=== PATIENT | female | born 1965 | race Caucasian/White ===

== ENCOUNTER 2020-11-24 12:55 | Inpatient (IN) ==
[2020-11-24] MEDS ORDERED: IOPAMIDOL 100 ML BOTTLE IV ONE (12:56)
--- NOTE | 2020-11-24 15:33 | Emergency Department Note ---
Abdominal Pain HPI General Chief Complaint: Abdominal Pain Stated Complaint: RLQ pain, n/v Time Seen by Provider: 11/24/20 15:32 Source: patient Mode of arrival: ambulatory Limitations: no limitations History of Present Illness HPI Narrative: Narrative: 54 y/o female presents to the ED with abd pain since Sat afternoon (48 hours). Over the last 24 hours pain has migrated to RLQ. Sharp stabbing pain constant, increases with walking and with movement. No hx of same. + Nausea with vomiting x 3. Decreased oral intake last 2 days. Feels constipated. Last BM 3 days ago. Reports not passing gas. Related Data Home Medications Medication Instructions Recorded Confirmed thyroid (pork) 60 mg tablet 60 mg PO QDAY 08/27/19 11/25/20 C-testosterone 5mg/25ml #1 ea 09/24/19 11/25/20 estradiol 1 mg tablet 2 mg PO QDAY tab 09/24/19 11/25/20 phentermine 37.5 mg capsule 37.5 mg PO QDAY 09/24/19 11/25/20 progesterone micronized 200 mg 200 mg PO QDAY cap 09/24/19 11/25/20 capsule topiramate 25 mg tablet 25 mg PO QDAY 09/24/19 11/25/20 melatonin 10 mg capsule 20 mg PO HS cap 05/05/20 11/25/20 ergocalciferol (vitamin D2) See Rx Instructions .ROUTE .COMPLEX 11/25/20 11/25/20 Previous Rx's Medication Instructions Recorded omeprazole 40 mg capsule,delayed 40 mg PO QDAY 30 Days #30 cap 07/15/20 release valacyclovir 1 gram tablet 1,000 mg PO QDAY 90 Days #90 tab 09/05/20 Allergies Allergy/AdvReac Type Severity Reaction Status Date / Time peanut Allergy Severe Difficulty Verified 11/24/20 12:56 Breathing Penicillins Allergy Severe Rash Verified 11/24/20 12:56 Sulfa (Sulfonamide AdvReac Severe Migraine Verified 11/24/20 12:56 Antibiotics) Review of Systems ROS ROS Narrative: Narrative: Positive ROS for abd pain, nausea, vomiting and const ipation. Otherwise 10 systems reviewed and entirely negative. PFSH Narrative Patient History Narrative: Narrative: Medical/Surgical/Family History All Active Problems Volvulus of ascending colon (Acute) Complete obstruction of small intestine (Acute) Cecal bascule (Acute) Constipation (Chronic) Viral syndrome (Acute) Chest pain (Acute) Mouth dryness (Acute) Abdominal pain (Acute) Chest pain (Acute) Thrush (Acute) Metabolic acidosis (Acute) Dyspnea (Acute) Hiatal hernia (Chronic) Bronchiectasis (Chronic) Snoring (Acute) Genital herpes (Chronic) Allergic dermatitis (Chronic) Seborrheic keratosis (Chronic) Hemangioma (Chronic) Dermatofibroma (Chronic) Urge incontinence of urine (Chronic) Papilledema (Chronic) Pseudotumor cerebri (Chronic) GERD (gastroesophageal reflux disease) (Chronic) Depression with anxiety (Chronic) Vitamin D deficiency (Chronic) Endocrine disorder (Chronic) History of cholecystectomy (Chronic ~2000) History of hysterectomy (Chronic ~1991) History of (Chronic) PTSD (post-traumatic stress disorder) (Chronic) Hypothyroidism (Chronic) Hypersomnia (Chronic) Change in vision (Chronic) Loss of appetite (Chronic) Leg pain (Chronic) Back pain (Chronic) History of chronic bronchitis (Chronic) Fatigue (Chronic) Shortness of breath (Chronic) Medical History Abdominal pain Allergic dermatitis Back pain Bronchiectasis Change in vision Chest pain Constipation Depression with anxiety Dermatofibroma Dyspnea Endocrine disorder Fatigue Genital herpes GERD (gastroesophageal reflux disease) Hemangioma Hiatal hernia History of chronic bronchitis Hypersomnia Hypothyroidism Leg pain Loss of appetite Metabolic acidosis Mouth dryness Papilledema Pseudotumor cerebri PTSD (post-traumatic stress disorder) Seborrheic keratosis Shortness of breath Snoring Thrush Urge incontinence of urine Viral syndrome Vitamin D deficiency Surgical History History of 3 History of cholecystectomy (~2000) History of esophagogastroduodenoscopy (EGD) 09/05/17; 05/30/17 History of hysterectomy (~1991) Ovaries remain Family History Father , age 62 Obesity Cancer Mother Obesity Hypoglycemia Migraine headache Ovarian cancer Family/Other Lupus Crohn's disease Stroke Grandmother Pancreatic cancer Maternal Dementia Maternal Grandfather Dementia Maternal Sister Lupus half-sister Social History Smoking Status: Former smoker Alcohol Intake Frequency: holiday/special occasion only Substance Use: does not use Exam Narrative Narrative: Narrative: General Limitations: no limitations General appearance: Present alert; Absent in distress Head Head: Present atraumatic and normocephalic Eye Eye: Present normal appearance ENT ENT: Present normal exam, normal oropharynx and mucous membranes moist Neck Neck: Present normal inspection and full ROM Chest Chest: Present symmetric chest wall rise Respiratory Respiratory: Present normal lung sounds bilaterally; Absent respiratory distress and wheezes Cardiovascular Cardiovascular: Present regular rate, normal rhythm and normal heart sounds Adbominal Abdominal: Present soft, tenderness, guarding (RLQ) and normal bowel sounds Extremities Extremities: Present normal inspection and full ROM; Absent pedal edema Back Back: Absent tenderness Neurological Neurological: Present alert, oriented X3 and normal gait Psychiatric Psychiatric: Present normal affect Skin Skin: Present warm (WNL) and dry Course Vital Signs Vital signs: Vital Signs Pulse Rate 148 H 11/24/20 12:56 Respiratory Rate 20 11/24/20 12:56 Blood Pressure 113/84 11/24/20 12:56 Pulse Oximetry (%) 97 11/24/20 12:56 Temperature 36.7 C 11/25/20 08:00 Pulse Rate 59 L 11/25/20 08:00 Respiratory Rate 14 11/25/20 08:00 Blood Pressure 95/49 11/25/20 08:00 Pulse Oximetry (%) 100 11/25/20 08:00 MDM MDM Narrative Medical decision making narrative: Narrative: [address] findings with pt. NPO, will covid swab, IVF. Pain controlled. [address] Valente, surgeon, will see pt in ED. Lab Data Result diagrams: 11/25/20 05:47 11/25/20 05:46 Labs: Lab Results 11/24/20 11/24/20 11/24/20 Range/Units 15:29 15:29 15:29 WBC 14.3 H (4.5-11.0) K/mcL RBC 5.20 (3.59-5.38) M/mcL Hgb 16.3 H (11.2-15.7) g/dL Hct 48.2 H (34.1-44.9) % MCV 92.7 (80.0-100.0) fL MCH 31.3 (26.0-34.0) pg MCHC 33.8 (31.0-36.0) g/dL RDW 13.1 (11.5-14.5) % Plt Count 283 (140-440) K/mcL MPV 11.4 H (7.4-10.4) fL Neut % (Auto) 76.9 (38.0-78.0) % Lymph % (Auto) 16.0 (15.5-49.0) % [place] % (Auto) 6.9 (1.0-12.0) % Eos % (Auto) 0.1 (0.0-7.0) % Baso % (Auto) 0.1 (0.0-2.0) % Lymph # (Auto) 2.29 (1.50-4.80) K/mcL [place] # (Auto) 0.98 H (0.10-0.90) K/mcL Eos # (Auto) 0.01 (0.00-0.70) K/mcL Baso # (Auto) 0.02 (0.00-0.30) K/mcL Absolute Neutrophils 10.99 H (1.80-8.00) K/mcL Sodium 137 (133-145) mmol/L Potassium 3.2 L (3.3-5.1) mmol/L Chloride 98 (96-108) mmol/L Carbon Dioxide 26 (22-30) mmol/L Anion Gap 13.0 (8.0-16.0) BUN 9 (6-20) mg/dL Creatinine 0.9 (0.6-1.1) mg/dL GFR Calculation 73 Glucose 93 (70-105) mg/dL Calcium 9.6 (8.6-10.4) mg/dL Total Bilirubin 0.5 (0.1-1.0) mg/dL AST 19 (<32) U/L ALT 18 (<40) U/L Alkaline Phosphatase 52 (39-117) U/L Total Protein 7.6 (5.9-8.4) gm/dL Albumin 4.5 (3.2-5.2) gm/dL Globulin 3.1 (2.2-3.7) gm/dL Albumin/Globulin Ratio 1.5 (1.0-2.3) Lipase 26 (7-60) U/L ED POC Tests ED POC Tests: DELIO - SARS Antigen Negative Radiology Data Radiology results reviewed: Yes I reviewed the patient's radiology results. Radiology results narrative: INDICATION: RLQ pain, eval appy COMPARISON: None. TECHNIQUE: Axial images were obtained through the abdomen and pelvis. Sagittally and coronally reformatted images. 80 mL Isovue 370 injected intravenously. Oral contrast material was not administered FINDINGS: Lung bases:Negative. No pulmonary parenchymal nodule. No pleural fluid or pericardial fluid Liver:Negative. No focal intrahepatic mass. No focal abnormality. Liver contour is smooth. No evidence for cirrhosis Gallbladder, bilary:Previous cholecystectomy. There is mild intrahepatic bile duct dilatation. Common bile duct is dilated to approximately 9 mm. No detectable choledocholithiasis. Spleen:No splenomegaly. Normal enhancement of splenic and portal veins. Pancreas:No pancreatic mass. No peripancreatic abnormality Adrenal glands:Negative Kidneys, ureters, bladder:No solid renal mass. No hydronephrosis. No obstructing calculi. There is no hydroureter. No ureteral stone Bladder is collapsed. No bladder calculi Gastrointestinal:Cecum is distended and measures approximately 8 cm in cross-sectional diameter. The cecum extends across the midline to the left side of the pelvis. Appearance is consistent with cecal bascule. No cecal wall thickening. Ascending colon, transverse colon, descending colon are negative. Sigmoid colon contains fecal material and is negative. There is no diverticulitis. No detectable colonic mass. Small bowel is abnormal. There is diffuse small bowel dilatation. Jejunum and ileum measure approximately 2.5 cm in maximum cross-sectional diameter. Small bowel is fluid-filled. In the left upper quadrant there is collapsed small bowel and findings suggesting internal hernia and jejunal obstruction. This may be a left paraduodenal hernia. Ileum, however, is also dilated and this may be due to cecal bascule and relative obstruction at the ileocecal valve. Appendix: The appendix is nonvisualized Vascular:Negative abdominal aorta. Superior mesenteric artery and celiac trunk are normal. Normal opacification of the inferior mesenteric artery Lymphatic:No retroperitoneal or mesenteric adenopathy Mesentery, peritoneum: Small amount of free pelvic fluid. No intra-abdominal abscess. No pneumoperitoneum. Reproductive:History of previous hysterectomy. No adnexal mass Musculoskeletal:No lumbar compression fractures. Sacrum and pelvis are negative. No hip fracture. No abdominal wall or inguinal hernia IMPRESSION: 1. Distended fluid-filled cecum. Cecum extends across the midline into the left pelvis. 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 Dilated fluid-filled small bowel. This involves both ileum and jejunum 3. Apparent transition point in the left upper quadrant consistent with internal hernia and small bowel obstruction 4. Dilated fluid-filled jejunum may be due to cecal bascule 5. Small amount of free intraperitoneal fluid. There is no pneumoperitoneum. 6. Previous cholecystectomy. Mild intrahepatic bile duct dilatation. Common bile duct measures 9 mm. No detectable choledocholithiasis 7. Previous hysterectomy The exam was performed using radiation dose optimization techniques including, but not limited to, automated exposure control, adjustment of the mA and/or kV according to patient size and use of iterative reconstruction technique. Interpreted and Authenticated by: Irvin Schmidt 11/24/20 [id number] Iron Installer: Discharge Plan Patient/Caregiver Discharge Instructions Pt seen by [employer] HAND/PA only: Yes Clinical Impression: Complete obstruction of small intestine, Cecal bascule Patient Disposition: Xfer As Inpt ([facility]) Discharge Date/Time: 11/24/20 18:09
[2020-11-24] MEDS ORDERED: ONDANSETRON 4 MG/2 ML VIAL IV ONE (15:36)
[2020-11-24] MEDS ORDERED: morphine 4 MG/ML VIAL IV ONE (15:36)
[2020-11-24 16:01] LABS: Basophils # (Auto) 0.02 K/mcL (0.00-0.30); Basophils % (Auto) 0.1 % (0.0-2.0); Eosinophils # (Auto) 0.01 K/mcL (0.00-0.70); Eosinophils % (Auto) 0.1 % (0.0-7.0); Hematocrit 48.2 % (34.1-44.9); Hemoglobin 16.3 g/dL (11.2-15.7); Lymphocytes # (Auto) 2.29 K/mcL (1.50-4.80); Mean Cell Volume 92.7 fL (80.0-100.0); Mean Corpuscular HGB Conc 33.8 g/dL (31.0-36.0); Mean Platelet Volume 11.4 fL (7.4-10.4); Monocytes # (Auto) 0.98 K/mcL (0.10-0.90); Monocytes % (Auto) 6.9 % (1.0-12.0); Neutrophils % (Auto) 76.9 % (38.0-78.0); Platelet Count 283 K/mcL (140-440); Red Cell Distribution Width 13.1 % (11.5-14.5); WBC 14.3 K/mcL (4.5-11.0)
[2020-11-24 16:19] LABS: ALT/SGPT 18 U/L (<40); AST/SGOT 19 U/L (<32); Albumin 4.5 gm/dL (3.2-5.2); Albumin/Globulin Ratio 1.5 (1.0-2.3); Alkaline Phosphatase 52 U/L (39-117); Bilirubin,Total 0.5 mg/dL (0.1-1.0); Blood Urea Nitrogen 9 mg/dL (6-20); Calcium 9.6 mg/dL (8.6-10.4); Carbon Dioxide 26 mmol/L (22-30); Chloride 98 mmol/L (96-108); Globulin 3.1 gm/dL (2.2-3.7); Glomerular Filtration Rate 73; Glucose 93 mg/dL (70-105)
--- NOTE | 2020-11-24 16:24 | Cat Scan Report ---
INDICATION: RLQ pain, eval appy COMPARISON: None. TECHNIQUE: Axial images were obtained through the abdomen and pelvis. Sagittally and coronally reformatted images. 80 mL Isovue 370 injected intravenously. Oral contrast material was not administered FINDINGS: Lung bases:Negative. No pulmonary parenchymal nodule. No pleural fluid or pericardial fluid Liver:Negative. No focal intrahepatic mass. No focal abnormality. Liver contour is smooth. No evidence for cirrhosis Gallbladder, bilary:Previous cholecystectomy. There is mild intrahepatic bile duct dilatation. Common bile duct is dilated to approximately 9 mm. No detectable choledocholithiasis. Spleen:No splenomegaly. Normal enhancement of splenic and portal veins. Pancreas:No pancreatic mass. No peripancreatic abnormality Adrenal glands:Negative Kidneys, ureters, bladder:No solid renal mass. No hydronephrosis. No obstructing calculi. There is no hydroureter. No ureteral stone Bladder is collapsed. No bladder calculi Gastrointestinal:Cecum is distended and measures approximately 8 cm in cross-sectional diameter. The cecum extends across the midline to the left side of the pelvis. Appearance is consistent with cecal bascule. No cecal wall thickening. Ascending colon, transverse colon, descending colon are negative. Sigmoid colon contains fecal material and is negative. There is no diverticulitis. No detectable colonic mass. Small bowel is abnormal. There is diffuse small bowel dilatation. Jejunum and ileum measure approximately 2.5 cm in maximum cross-sectional diameter. Small bowel is fluid-filled. In the left upper quadrant there is collapsed small bowel and findings suggesting internal hernia and jejunal obstruction. This may be a left paraduodenal hernia. Ileum, however, is also dilated and this may be due to cecal bascule and relative obstruction at the ileocecal valve. Appendix: The appendix is nonvisualized Vascular:Negative abdominal aorta. Superior mesenteric artery and celiac trunk are normal. Normal opacification of the inferior mesenteric artery Lymphatic:No retroperitoneal or mesenteric adenopathy Mesentery, peritoneum: Small amount of free pelvic fluid. No intra-abdominal abscess. No pneumoperitoneum. Reproductive:History of previous hysterectomy. No adnexal mass Musculoskeletal:No lumbar compression fractures. Sacrum and pelvis are negative. No hip fracture. No abdominal wall or inguinal hernia IMPRESSION: 1. Distended fluid-filled cecum. Cecum extends across the midline into the left pelvis. 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 Dilated fluid-filled small bowel. This involves both ileum and jejunum 3. Apparent transition point in the left upper quadrant consistent with internal hernia and small bowel obstruction 4. Dilated fluid-filled jejunum may be due to cecal bascule 5. Small amount of free intraperitoneal fluid. There is no pneumoperitoneum. 6. Previous cholecystectomy. Mild intrahepatic bile duct dilatation. Common bile duct measures 9 mm. No detectable choledocholithiasis 7. Previous hysterectomy The exam was performed using radiation dose optimization techniques including, but not limited to, automated exposure control, adjustment of the mA and/or kV according to patient size and use of iterative reconstruction technique. Interpreted and Authenticated by: Irvin Schmidt 11/24/20
--- NOTE | 2020-11-24 17:13 | General Surg History&Physical ---
HPI History of Present Illness Patient information: Note initiated : 11/24/20 at 5:08 pm Service Date, if different from initiated Date: [] Patient: Kat Benson a 54 y/o F admitted on for RLQ pain, n/v. Chief Complaint: Abdominal pain, nausea and emesis History of present illness: Ms. Benson is a 54 year old F who started having crampy abdominal pain on Tuesday, the pain gradually increased over the last several days however she did not think it was significant until today when she woke up and started having nausea with copious amount of brown emesis. She denies any prior history of similar sort of pains. She does report that starting on Tuesday she had some abdominal distention up to what she describes 6 weeks . Past surgical history is significant for cholecystectomy, C- section x3 and hysterectomy without oophorectomy. She does report mild fever, no chills, no diarrhea or constipation. She has no sick contacts or travel outside [place]. Review of Systems Review of systems: All systems are reviewed, negative other than above PFSH PFSH All Active Problems Volvulus of ascending colon (Acute) Complete obstruction of small intestine (Acute) Cecal bascule (Acute) Constipation (Chronic) Viral syndrome (Acute) Chest pain (Acute) Mouth dryness (Acute) Abdominal pain (Acute) Chest pain (Acute) Thrush (Acute) Metabolic acidosis (Acute) Dyspnea (Acute) Hiatal hernia (Chronic) Bronchiectasis (Chronic) Snoring (Acute) Genital herpes (Chronic) Allergic dermatitis (Chronic) Seborrheic keratosis (Chronic) Hemangioma (Chronic) Dermatofibroma (Chronic) Urge incontinence of urine (Chronic) Papilledema (Chronic) Pseudotumor cerebri (Chronic) GERD (gastroesophageal reflux disease) (Chronic) Depression with anxiety (Chronic) Vitamin D deficiency (Chronic) Endocrine disorder (Chronic) History of cholecystectomy (Chronic ~2000) History of hysterectomy (Chronic ~1991) History of (Chronic) PTSD (post-traumatic stress disorder) (Chronic) Hypothyroidism (Chronic) Hypersomnia (Chronic) Change in vision (Chronic) Loss of appetite (Chronic) Leg pain (Chronic) Back pain (Chronic) History of chronic bronchitis (Chronic) Fatigue (Chronic) Shortness of breath (Chronic) Medical History Abdominal pain Allergic dermatitis Back pain Bronchiectasis Change in vision Chest pain Constipation Depression with anxiety Dermatofibroma Dyspnea Endocrine disorder Fatigue Genital herpes GERD (gastroesophageal reflux disease) Hemangioma Hiatal hernia History of chronic bronchitis Hypersomnia Hypothyroidism Leg pain Loss of appetite Metabolic acidosis Mouth dryness Papilledema Pseudotumor cerebri PTSD (post-traumatic stress disorder) Seborrheic keratosis Shortness of breath Snoring Thrush Urge incontinence of urine Viral syndrome Vitamin D deficiency Surgical History History of 3 History of cholecystectomy (~2000) History of esophagogastroduodenoscopy (EGD) 09/05/17; 05/30/17 History of hysterectomy (~1991) Ovaries remain Family History Father , age 62 Obesity Cancer Mother Obesity Hypoglycemia Migraine headache Ovarian cancer Family/Other Lupus Crohn's disease Stroke Grandmother Pancreatic cancer Maternal Dementia Maternal Grandfather Dementia Maternal Sister Lupus half-sister Social History marital status: occupational status: employed occupation: [id number] smoking status stop date: 02/28/94 alcohol intake frequency: holiday/special occasion only substance use type: does not use MEDS/ALLERGIES Home Medications and Allergies Home Medications Medication Instructions Recorded Confirmed Type prasterone (dhea) 50 mg capsule 50 mg PO QDAY 08/27/19 07/14/20 History thyroid (pork) 60 mg tablet 60 mg PO QDAY 08/27/19 07/14/20 History C-testosterone 5mg/25ml #1 ea 09/24/19 05/05/20 History estradiol 1 mg tablet 2 mg PO QDAY tab 09/24/19 07/14/20 History phentermine 37.5 mg capsule 37.5 mg PO QDAY 09/24/19 07/14/20 History progesterone micronized 200 mg 200 mg PO QDAY cap 09/24/19 07/14/20 History capsule topiramate 25 mg tablet 25 mg PO QDAY 09/24/19 07/14/20 History vitamin D #1 ea 09/24/19 05/05/20 History fluticasone propionate 220 1 puff INHALATION BID #12 g 11/13/20 05/17/21 Rx mcg/actuation HFA aerosol inhaler melatonin 10 mg capsule 20 mg PO HS cap 05/05/20 07/14/20 History spironolactone 25 100 ml PO DAILY 05/05/20 07/14/20 History albuterol sulfate 90 mcg/actuation 2 puff INHALATION Q6H PRN #8.5 g 05/15/20 07/14/20 Rx aerosol inhaler omeprazole 40 mg capsule,delayed 40 mg PO QDAY 30 Days #30 cap 07/15/20 Rx release valacyclovir 1 gram tablet 1,000 mg PO QDAY 90 Days #90 tab 09/05/20 Rx Allergies Allergy/AdvReac Type Severity Reaction Status Date / Time peanut Allergy Severe Difficulty Verified 11/24/20 12:56 Breathing Penicillins Allergy Severe Rash Verified 11/24/20 12:56 Sulfa (Sulfonamide AdvReac Severe Migraine Verified 11/24/20 12:56 Antibiotics) Physical Examination Vital Signs Vital signs: Pulse Resp BP Pulse Ox 83 20 123/73 97 11/24/20 15:45 11/24/20 12:56 11/24/20 15:45 11/24/20 15:45 General physical appearance General physical exam: well developed, well nourished and no distress Eyes Eye exam: PERRL and normal ocular movement ENT ENT exam: normal pinna, normal nares, normal mucosa, no hearing loss and no congestion Head Head exam IM: Present atraumatic and normocephalic Neck Neck exam: no masses, no bruits, trachea midline, no lymphadenopathy and no venous distension Cardiovascular Cardiovascular exam IM: Present normal rate and rhythm Respiratory Respiratory exam: normal expansion, normal respiratory effort, clear to percussion and clear to auscultation Abdomen Abdomen: Present soft, tender, bowel sounds, surgical scars and rebound; Absent guarding and rigid Hernia: Present none Genitourinary Genitourinary (Female): Present normal external genitalia Rectum Rectum: Present normal sphincter tone, no hemorrhoids, no tenderness, no masses and no bleeding Integumentary Integumentary: Present no rash, no growths and no abnormal pigmentation Neurologic Neurologic: Present normal coordination and normal sensation Musculoskeletal Musculoskeletal: Present normal gait and normal posture Psychiatric Psychiatric: Present oriented to time, oriented to person, oriented to place, speech is normal and memory intact Results Labs Result diagrams: 11/24/20 15:29 11/24/20 15:29 Labs: Abnormal lab results 11/24/20 11/24/20 Range/Units 15:29 15:29 WBC 14.3 H (4.5-11.0) K/mcL Hgb 16.3 H (11.2-15.7) g/dL Hct 48.2 H (34.1-44.9) % MPV 11.4 H (7.4-10.4) fL [place] # (Auto) 0.98 H (0.10-0.90) K/mcL Absolute Neutrophils 10.99 H (1.80-8.00) K/mcL Potassium 3.2 L (3.3-5.1) mmol/L Diabetes panel 11/24/20 Range/Units 15:29 Sodium 137 (133-145) mmol/L Potassium 3.2 L (3.3-5.1) mmol/L Chloride 98 (96-108) mmol/L Carbon Dioxide 26 (22-30) mmol/L BUN 9 (6-20) mg/dL Creatinine 0.9 (0.6-1.1) mg/dL Glucose 93 (70-105) mg/dL Calcium 9.6 (8.6-10.4) mg/dL AST 19 (<32) U/L ALT 18 (<40) U/L Alkaline Phosphatase 52 (39-117) U/L Total Protein 7.6 (5.9-8.4) gm/dL Albumin 4.5 (3.2-5.2) gm/dL Calcium panel 11/24/20 Range/Units 15:29 Calcium 9.6 (8.6-10.4) mg/dL Albumin 4.5 (3.2-5.2) gm/dL Pituitary panel 11/24/20 Range/Units 15:29 Sodium 137 (133-145) mmol/L Potassium 3.2 L (3.3-5.1) mmol/L Chloride 98 (96-108) mmol/L Carbon Dioxide 26 (22-30) mmol/L BUN 9 (6-20) mg/dL Creatinine 0.9 (0.6-1.1) mg/dL Glucose 93 (70-105) mg/dL Calcium 9.6 (8.6-10.4) mg/dL Adrenal panel 11/24/20 Range/Units 15:29 Sodium 137 (133-145) mmol/L Potassium 3.2 L (3.3-5.1) mmol/L Chloride 98 (96-108) mmol/L Carbon Dioxide 26 (22-30) mmol/L BUN 9 (6-20) mg/dL Creatinine 0.9 (0.6-1.1) mg/dL Glucose 93 (70-105) mg/dL Calcium 9.6 (8.6-10.4) mg/dL Total Bilirubin 0.5 (0.1-1.0) mg/dL AST 19 (<32) U/L ALT 18 (<40) U/L Alkaline Phosphatase 52 (39-117) U/L Total Protein 7.6 (5.9-8.4) gm/dL Albumin 4.5 (3.2-5.2) gm/dL All other labs normal. Imaging CT scan - abdomen: other (CT scan reviewed, independently interpreted by myself consistent with cecal volvulus) A/P Assessment and plan (1) Volvulus of ascending colon: Status: Acute Narrative A/P Narrative: This is a pleasant 54-year-old female which presents with signs a nd symptoms consistent with a cecal volvulus. Patient has abdominal distention, nausea and emesis. Risk, benefits, alternatives to treatment discussed with the patient at length. She verbalizes understanding and agrees with treatment. Plan: Emergent operative intervention, exploratory laparotomy, possible bowel resection. Admit to hospital for ongoing evaluation. Time Spent With Patient Time: Total time spent is greater than 50% in coordination of care (as documented) at patient's floor/unit and/or counseling patient:
[2020-11-24] MEDS: 0.9 % SODIUM CHLORIDE 1,000 ML IV SCH (17:16)
[2020-11-24] MEDS ORDERED: CLINDAMYCIN 600 MG in DEXTROSE 5% IN WATER 50 ML IV SCH (18:00)
[2020-11-24] MEDS ORDERED: PROPOFOL 200 MG/20 ML VIAL IV ONE (18:37)
[2020-11-24] MEDS ORDERED: LIDOCAINE HCL/PF 100 MG/5 ML SYRINGE IV ONE (18:37)
[2020-11-24] MEDS ORDERED: ONDANSETRON 4 MG/2 ML VIAL ONE (18:37)
[2020-11-24] MEDS ORDERED: KETAMINE 50 MG/ML Syringe (ANEST) IV ONE (18:37)
[2020-11-24] MEDS ORDERED: ROCURONIUM 10 MG/ML ML IV ONE (18:37)
[2020-11-24] MEDS ORDERED: DEXAMETHASONE 10 MG/ML VIAL ONE (18:37)
[2020-11-24] MEDS ORDERED: MAGNESIUM SULFATE 2 GM/50 ML BAG IV ONE (18:37)
[2020-11-24] MEDS ORDERED: SUCCINYLCHOLINE 20 MG/ML ML IV ONE (18:37)
[2020-11-24] MEDS ORDERED: SUGAMMADEX SODIUM 200 MG/2 ML VIAL IV ONE (18:37)
[2020-11-24] MEDS ORDERED: fentaNYL 100 MCG/2 ML VIAL IV ONE (18:37)
[2020-11-24] MEDS ORDERED: NALOXONE HCL 0.4 MG/ML VIAL IV PRN (19:02)
[2020-11-24] MEDS ORDERED: LACTATED RINGERS 250 ML IV PRN (19:02)
[2020-11-24] MEDS ORDERED: ACETAMINOPHEN 1,000 MG/100 ML BAG IV ONE ×2 (19:02→20:11)
[2020-11-24] MEDS ORDERED: ONDANSETRON 4 MG/2 ML VIAL IV PRN ×2 (19:02→19:38)
[2020-11-24] MEDS ORDERED: IPRATROPIUM/ALBUTEROL 3 ML AMPUL.NEB NEB PRN (19:02)
[2020-11-24] MEDS ORDERED: diphenhydrAMINE 50 MG/ML VIAL IV PRN (19:02)
[2020-11-24] MEDS ORDERED: PROMETHAZINE 25 MG/ML VIAL IV PRN (19:02)
[2020-11-24] MEDS ORDERED: LACTATED RINGERS 1,000 ML IV SCH (19:15)
--- NOTE | 2020-11-24 19:38 | Operative Note ---
Brief Operative Note Date of procedure: 11/24/20 Pre-op diagnosis: Cecal volvulus Post-op diagnosis: same Procedure: Exploratory laparotomy, right hemicolectomy Anesthesia: GETA Findings: Adhesive band causing a cecal volvulus Complications: none Surgeon: [place] Estimated blood loss (cc): 50 Specimens Removed/Pathology: other (Right hemicolectomy) Condition: stable Disposition: floor Operative Note Operative Note: After risk benefits and alternatives to the procedure were discussed with the patient at length she verbalized understanding and desire to continue with the surgery. Patient was taken main operating place upon the operative table. General anesthesia was induced over endotracheal tube. Patient's prepped and draped in the standard sterile surgical fashion. Surgical timeout was taken to verify patient and procedure being performed. Midline incision was made carried down through the skin and subtenons tissue. The abdominal cavity was entered under direct vision and incision was carried superiorly and inferiorly. Abdominal expiration was significant for a volvulized cecum this was reduced and expiration revealed and adhesive band in approximately the mid ascending colon causing partial cecal obstruction. This was removed and exploration showed a distended and stretched mesentery to the cecum secondary to the partial colonic obstruction from adhesive band. Due to the redundant cecum and the propensity for the cecum to volvulized decision was made to perform a right hemicolectomy. The ileum was transected approximately 10 cm proximal to the terminal ileum and the cecum was transected just distal to the adhesive band. The mesentery was taken down with a vessel sealing device and the specimen was passed off the field for surgical pathology. A [id number] functional end-to-end stapled anastomosis was performed in the standard fashion. The enterotomy was closed with a running 3-0 PDS suture. The staple line was oversewn with interrupted 3-0 Vicryl sutures and the mesentery was closed with 3-0 Vicryl sutures. The small bowel was then ran from the anastomosis back to the ligament of Treitz which showed distended small bowel but no other adhesive bands, no internal hernias, and no other pathology. The NG tube was verified to be in the stomach in good position. The bowel and anastomosis were returned to the abdominal cavity which was then copiously irrigated with 2 L of normal saline. The closing tray was then brought up and the abdominal cavity was once again inspected for hemostasis and no further pathology was identified. Midline fascial defect was reapproximated with a running oh location was then awakened from general anesthesia transported postanesthesia care unit awake alert in good condition.
[2020-11-24] MEDS: fentaNYL 100 MCG/2 ML VIAL IV PRN ×4 (19:52→20:01)
[2020-11-24] MEDS: MEPERIDINE 25 MG/ML VIAL IV PRN ×2 (19:57→20:04)
[2020-11-24] MEDS: morphine 2 MG/ML VIAL IV PRN ×2 (20:05→20:18)
[2020-11-24] MEDS ORDERED: KETOROLAC 30 MG/ML VIAL IV ONE (20:12)
[2020-11-24] MEDS ORDERED: KETOROLAC 30 MG/ML VIAL ONE (20:23)
[2020-11-24] MEDS ORDERED: HYDROmorphone 0.5 MG/0.5 ML SYRINGE IV PRN (20:25)
[2020-11-24] MEDS: HYDROmorphone 0.5 MG/0.5 ML SYRINGE IV PRN ×2 (20:29→22:40)
[2020-11-24] MEDS ORDERED: HYDROmorphone 0.5 MG/0.5 ML SYRINGE ONE ×2 (20:31→20:48)
[2020-11-24] MEDS: LACTATED RINGERS 1,000 ML IV SCH (22:30)
[2020-11-25] MEDS: KETOROLAC 30 MG/ML VIAL IV SCH ×4 (01:19→23:24)
[2020-11-25] MEDS: HYDROmorphone 0.5 MG/0.5 ML SYRINGE IV PRN ×7 (02:52→23:25)
[2020-11-25] MEDS: 0.9 % SODIUM CHLORIDE 1,000 ML IV SCH ×2 (05:09→06:51)
[2020-11-25] MEDS: LACTATED RINGERS 1,000 ML IV SCH ×2 (05:10→05:54)
[2020-11-25 08:00] LABS: Basophils # (Auto) 0.02 K/mcL (0.00-0.30); Basophils % (Auto) 0.1 % (0.0-2.0); Eosinophils # (Auto) 0 K/mcL (0.00-0.70); Eosinophils % (Auto) 0 % (0.0-7.0); Hematocrit 40.6 % (34.1-44.9); Lymphocytes % (Auto) 7.1 % (15.5-49.0); Mean Cell Volume 96.4 fL (80.0-100.0); Mean Platelet Volume 11.3 fL (7.4-10.4); Monocytes # (Auto) 0.83 K/mcL (0.10-0.90); Monocytes % (Auto) 5.9 % (1.0-12.0); Neutrophils % (Auto) 86.9 % (38.0-78.0); Platelet Count 203 K/mcL (140-440); RBC 4.21 M/mcL (3.59-5.38); Red Cell Distribution Width 13.1 % (11.5-14.5); WBC 14.2 K/mcL (4.5-11.0)
[2020-11-25 08:46] LABS: Blood Urea Nitrogen 10 mg/dL (6-20); Calcium 8.1 mg/dL (8.6-10.4); Carbon Dioxide 25 mmol/L (22-30); Chloride 105 mmol/L (96-108); Glomerular Filtration Rate 73; Glucose 113 mg/dL (70-105)
[2020-11-25] MEDS: DEXTROSE 5%-1/2NS W/20MEQ KCL 1,000 ML IV SCH ×3 (10:20→18:32)
--- NOTE | 2020-11-25 11:53 | General Surgery Progress Note ---
SUBJECTIVE Subjective Patient information: Note initiated : 11/25/20 at 11:51 am Service Date, if different from initiated Date: [] Patient: Kat Benson 54 y/o F admitted on 11/24/20 for RLQ pain, n/v. Chief Complaint: [] Interval history: Postop day #1 status post exploratory laparotomy, right hemicolectomy for cecal volvulus. Patient feels better this morning, she has not ambulated yet although her crampy abdominal pain is much improved. She has no further nausea or emesis. Constitutional Vitals: Vital Signs Temp Pulse Resp BP Pulse Ox 98.0 F 59 L 14 95/49 100 11/25/20 08:00 11/25/20 08:00 11/25/20 08:00 11/25/20 08:00 11/25/20 08:00 Period Temp Pulse Resp BP Sys/Alvarez Pulse Ox Last 24 Hr 97.6 F-98.3 F 59-148 12-20 87-144/49-103 83-100 Intake and Output 11/24/20 11/25/20 11/25/20 21:59 05:59 13:59 Intake Total 739 925 0 Output Total 150 550 Balance 589 375 0 Weight 139 lb Intake & Output: Intake & Output 11/24/20 11/25/20 11/25/20 21:59 05:59 13:59 Intake Total 739 925 0 Output Total 150 550 Balance 589 375 0 Weight 139 lb Intake: IV 739 925 Sodium Chloride 0.9% 1,000 ml @ 585 150 mls/hr IV .[id number] [facility] Rx#: [id number] Cleocin 600 mg In Dextrose 5% 54 in Water 50 ml @ 100 mls/hr IV PREOP [facility] Rx#:[id number] Lactated Ringers 1,000 ml @ 125 925 mls/hr IV .Q8H [facility] Rx#: [id number] Oral 0 Tube Feeding 0 0 Output: Gastric Drainage 100 NG/OG 100 Urine Catheter Amount 150 450 Other: Urine Appearance Clear Clear Clear Uretheral (Mandujano) Clear Urine Color Dark Yellow Dark Yellow Straw Uretheral (Mandujano) Dark Yellow General appearance: cooperative and no acute distress Head Additional comments: NG tube in place GI/Abdominal GI/Abdominal exam: Present soft and tenderness; Absent distended and rebound Additional comments: Dressing intact A/P Narrative A/P Narrative: Postop day #1 status post exploratory laparotomy right hemicolectomy. Patient is doing as expected. Plan: DC Mandujano. Patient needs to ambulate minimal 3 times a day, should have started last night. We will give ice chips, await return of bowel function before removing NG tube. Time Spent With Patient Time: Total time spent is greater than 50% in coordination of care (as documented) at patient's floor/unit and/or counseling patient:
--- NOTE | 2020-11-25 12:53 | EKG ---
[facility] Test Date: 2020-11-24 Pat Name: Kat Benson Department: ED Room: Gender: Female [employer]: : 1965 Requested By: Cullen Gary Order Number: [id number] Reading MD: Suman Alexander Measurements Intervals [place] Rate: 97 P: 82 TN: 148 QRS: 35 QRSD: 64 T: 76 QT: 340 QTc: 432 Interpretive Statements SINUS RHYTHM RIGHT ATRIAL ABNORMALITY Electronically Signed On 11-25-2020 12:52:59 PDT by Suman Alexander /store/M0/[id number]
[2020-11-25] MEDS ORDERED: BENZOCAINE 1 SPRAY BOTTLE TOPICAL ONE (20:28)
[2020-11-26] MEDS: HYDROmorphone 0.5 MG/0.5 ML SYRINGE IV PRN ×8 (01:42→22:36)
[2020-11-26] MEDS: DEXTROSE 5%-1/2NS W/20MEQ KCL 1,000 ML IV SCH ×3 (01:47→18:34)
[2020-11-26] MEDS: KETOROLAC 30 MG/ML VIAL IV SCH ×3 (06:48→18:34)
[2020-11-26 07:42] LABS: Blood Urea Nitrogen 9 mg/dL (6-20); Calcium 7.9 mg/dL (8.6-10.4); Carbon Dioxide 25 mmol/L (22-30); Chloride 108 mmol/L (96-108); Glomerular Filtration Rate 98; Glucose 101 mg/dL (70-105)
[2020-11-26 08:07] LABS: Basophils # (Auto) 0.02 K/mcL (0.00-0.30); Basophils % (Auto) 0.2 % (0.0-2.0); Eosinophils # (Auto) 0.08 K/mcL (0.00-0.70); Eosinophils % (Auto) 0.7 % (0.0-7.0); Hematocrit 34.6 % (34.1-44.9); Hemoglobin 11.6 g/dL (11.2-15.7); Lymphocytes # (Auto) 1.62 K/mcL (1.50-4.80); Lymphocytes % (Auto) 14.8 % (15.5-49.0); Mean Cell Volume 96.6 fL (80.0-100.0); Mean Corpuscular HGB Conc 33.5 g/dL (31.0-36.0); Mean Platelet Volume 11.3 fL (7.4-10.4); Monocytes # (Auto) 0.68 K/mcL (0.10-0.90); Monocytes % (Auto) 6.2 % (1.0-12.0); Neutrophils % (Auto) 78.1 % (38.0-78.0); Platelet Count 150 K/mcL (140-440); RBC 3.58 M/mcL (3.59-5.38); Red Cell Distribution Width 13.2 % (11.5-14.5); WBC 10.9 K/mcL (4.5-11.0)
[2020-11-27] MEDS: HYDROmorphone 0.5 MG/0.5 ML SYRINGE IV PRN ×7 (00:50→20:53)
[2020-11-27] MEDS: DEXTROSE 5%-1/2NS W/20MEQ KCL 1,000 ML IV SCH ×2 (02:15→10:01)
--- NOTE | 2020-11-27 12:01 | General Surgery Progress Note ---
SUBJECTIVE Subjective Patient information: Note initiated : 11/27/20 at 11:59 am Service Date, if different from initiated Date: [] Patient: Kat Benson 54 y/o F admitted on 11/24/20 for RLQ pain, n/v. Chief Complaint: [] Interval history: Postop day #2 status post closure laparotomy, right hemicolectomy for cecal volvulus. Patient feels well today, is passing a little bit of flatus, no nausea or vomiting fevers or chills. Constitutional Vitals: Vital Signs Temp Pulse Resp BP Pulse Ox 96.5 F L 89 14 99/57 97 11/27/20 08:00 11/27/20 08:00 11/27/20 02:35 11/27/20 08:00 11/27/20 08:00 Period Temp Pulse Resp BP Sys/Alvarez Pulse Ox Last 24 Hr 96.5 F-100.1 F 79-96 14-20 88-99/47-59 95-100 Intake and Output 11/26/20 11/27/20 11/27/20 21:59 05:59 13:59 Intake Total 1600 1360 971 Output Total 1075 1600 Balance 525 -240 971 Weight 139 lb Intake & Output: Intake & Output 11/26/20 11/27/20 11/27/20 21:59 05:59 13:59 Intake Total 1600 1360 971 Output Total 1075 1600 Balance 525 -240 971 Weight 139 lb Intake: IV 1000 960 971 Dextrose 5%-1/2Ns W/20Meq KCl 1 1000 960 971 ,000 ml @ 125 mls/hr IV .Q8H [facility] Rx#:[id number] Oral 600 400 Output: Void Amount 1075 1600 Other: Meal Dinner Percent of Meal Consumed 75% Feeding Ability Independent Urine Appearance Clear Clear Urine Color Bright Yellow Straw # Voids 1 General appearance: cooperative and no acute distress GI/Abdominal GI/Abdominal exam: Present soft and tenderness (Appropriate tender to palpation throughout, incision is clean dry and intact); Absent distended A/P Narrative A/P Narrative: Progressing as expected, tolerating clear liquid diet. Plan: Continue on clear liquid diet until return of bowel function. Start oral pain medication, continue to ambulate. Decrease IV fluid to 75 cc an hour. Time Spent With Patient Time: Total time spent is greater than 50% in coordination of care (as documented) at patient's floor/unit and/or counseling patient:
[2020-11-27] MEDS: oxyCODONE HCL 5 MG TABLET PO PRN ×2 (12:49→17:17)
--- NOTE | 2020-11-27 13:05 | Surgical Pathology Report ---
Histology Microscopic Diagnosis Specimen A- COLON, APPENDIX AND TERMINAL ILEUM, RIGHT HEMICOLECTOMY: --- COLON: FOCUS OF SEROSAL FIBROSIS AND VASCULAR CONGESTION, COMPATIBLE WITH CLINICAL HISTORY OF VOLVULUS. -- MELANOSIS COLI. --- TERMINAL ILEUM: NO DIAGNOSTIC ALTERATIONS. --- APPENDIX: NO DIAGNOSTIC ALTERATIONS. --- FIVE BENIGN LYMPH NODES. --- SURGICAL MARGINS VIABLE. --- NO DYSPLASIA OR MALIGNANCY IDENTIFIED. (RLF) Clinical History Right lower quadrant pain; nausea/vomiting. Procedural Impression Volvulus of ascending colon. Gross Description Received in formalin labeled cecum and appendix, is a portion of bowel with both margins stapled. The portion of cecum is 14.3 cm in length by 5.2 cm in diameter. The serosa is gardner-galvan. The wall is up to 0.2 cm thick. The mucosa is galvan and plicated with broadened folds. The appendix is present and measures 5 cm in length by 0.6 cm in diameter. The serosal surface of the appendix is gardner galvan with a 0.2 cm slightly raised possible nodule approximately 1.3 cm from the margin. There is a brown fecalith present. The portion of terminal ileum is 5 cm in length by 2.6 cm in diameter with galvan-rodriguez serosa, 0.2 cm thick wall and broadened plicated folds. The margin of the terminal ileum is inked black. There are six candidate lymph nodes identified from 0.3 to 1.5 cm. [employer] sections submitted: A1 - margins; A2 - random sections of cecum; A3 - ileocecal valve; A4 - terminal ileum; A5 - appendix; A6 - candidate lymph nodes. (SCB:sln) Electronically Signed Candice Stanton MD, FCAP Electronically Signed 11/27/2020 13:03
[2020-11-27] MEDS: DEXTROSE 5%-1/2NS 1,000 ML IV SCH ×2 (14:23→21:02)
[2020-11-27] MEDS: ACETAMINOPHEN 325 MG TABLET PO PRN ×2 (15:45→21:44)
[2020-11-27] MEDS: IBUPROFEN 600 MG TABLET PO PRN ×2 (15:46→21:43)
[2020-11-28] MEDS: oxyCODONE HCL 5 MG TABLET PO PRN ×5 (00:15→21:05)
[2020-11-28] MEDS: IBUPROFEN 600 MG TABLET PO PRN ×3 (06:33→22:55)
[2020-11-28] MEDS: ACETAMINOPHEN 325 MG TABLET PO PRN ×3 (06:33→22:54)
[2020-11-28 07:11] LABS: Basophils # (Auto) 0.02 K/mcL (0.00-0.30); Basophils % (Auto) 0.3 % (0.0-2.0); Eosinophils % (Auto) 4.6 % (0.0-7.0); Hematocrit 35.8 % (34.1-44.9); Hemoglobin 11.2 g/dL (11.2-15.7); Lymphocytes % (Auto) 18.6 % (15.5-49.0); Mean Cell Volume 99.4 fL (80.0-100.0); Mean Corpuscular HGB Conc 31.3 g/dL (31.0-36.0); Mean Platelet Volume 10.9 fL (7.4-10.4); Monocytes # (Auto) 0.63 K/mcL (0.10-0.90); Monocytes % (Auto) 9.8 % (1.0-12.0); Neutrophils % (Auto) 66.7 % (38.0-78.0); Platelet Count 186 K/mcL (140-440); Red Cell Distribution Width 12.7 % (11.5-14.5); WBC 6.5 K/mcL (4.5-11.0)
[2020-11-28 07:35] LABS: Blood Urea Nitrogen 4 mg/dL (6-20); Calcium 8.7 mg/dL (8.6-10.4); Carbon Dioxide 26 mmol/L (22-30); Chloride 106 mmol/L (96-108); Glomerular Filtration Rate 103; Glucose 84 mg/dL (70-105)
[2020-11-28] MEDS: HYDROmorphone 0.5 MG/0.5 ML SYRINGE IV PRN ×3 (07:44→23:03)
--- NOTE | 2020-11-28 08:04 | General Surgery Progress Note ---
SUBJECTIVE Subjective Patient information: Note initiated : 11/28/20 at 8:02 am Service Date, if different from initiated Date: [] Patient: Kat Benson 54 y/o F admitted on 11/24/20 for RLQ pain, n/v. Chief Complaint: [] Interval history: Patient continues to do well, had 2 large episodes of flatus overnight, her abdomen feels less distended and she is having less pain on oral pain medication. Patient is ambulatory, she has no fevers or chills, no nausea or vomiting. Constitutional Vitals: Vital Signs Temp Pulse Resp BP Pulse Ox 97.7 F 80 16 104/58 98 11/28/20 07:49 11/27/20 16:00 11/28/20 07:49 11/28/20 07:49 11/28/20 07:49 Period Temp Pulse Resp BP Sys/Alvarez Pulse Ox Last 24 Hr 97.5 F-98.3 F 80-84 16-16 97-108/51-60 97-98 Intake and Output 11/27/20 11/28/20 11/28/20 21:59 05:59 13:59 Intake Total 1800 250 Output Total 3815 400 Balance -2014 Weight 129 lb 8 oz Intake & Output: Intake & Output 11/27/20 11/28/20 11/28/20 21:59 05:59 13:59 Intake Total 1800 250 Output Total 3815 400 Balance -2014150 Weight 129 lb 8 oz Intake: IV 1000 Dextrose 5%-1/2Ns W/20Meq KCl 1 1000 ,000 ml @ 125 mls/hr IV .Q8H [facility] Rx#:[id number] Oral 400 250 GI Tube Flush 400 Output: Void Amount 3815 400 Other: Urine Appearance Clear Urine Color Bright Yellow General appearance: cooperative and no acute distress GI/Abdominal GI/Abdominal exam: Present soft and tenderness (Mild tender to palpation); Absent distended Additional comments: Midline incision is clean dry and intact A/P Narrative A/P Narrative: Postop right hemicolectomy for cecal volvulus. Patient is progressing as expected, has signs of return of bowel movement. Plan: Continue with ambulation awaiting full return of bowel function. I will advance her diet to regular today. Time Spent With Patient Time: Total time spent is greater than 50% in coordination of care (as documented) at patient's floor/unit and/or counseling patient:
[2020-11-28] MEDS: DEXTROSE 5%-1/2NS 1,000 ML IV SCH ×3 (10:41→22:44)
[2020-11-29] MEDS: oxyCODONE HCL 5 MG TABLET PO PRN ×3 (07:49→18:58)
[2020-11-29] MEDS: IBUPROFEN 600 MG TABLET PO PRN ×3 (07:58→23:01)
[2020-11-29] MEDS: ACETAMINOPHEN 325 MG TABLET PO PRN ×3 (07:58→22:59)
[2020-11-29] MEDS: DEXTROSE 5%-1/2NS 1,000 ML IV SCH ×2 (07:58→14:25)
--- NOTE | 2020-11-29 09:18 | General Surgery Progress Note ---
SUBJECTIVE Subjective Patient information: Note initiated : 11/29/20 at 9:16 am Service Date, if different from initiated Date: [] Patient: Kat Benson 54 y/o F admitted on 11/24/20 for RLQ pain, n/v. Chief Complaint: [] Interval history: Patient with complaint of point tenderness just superior to midline incision, also with occasional sharp stabbing right lower quadrant abdominal pain. Otherwise she feels good, she is tolerating a regular diet, she is passing flatus, she is ambulatory she has no fevers or chills nausea or vomiting. Constitutional Vitals: Vital Signs Temp Pulse Resp BP Pulse Ox 97.9 F 60 16 97/57 98 11/29/20 06:52 11/29/20 06:52 11/29/20 06:52 11/29/20 06:52 11/29/20 06:52 Period Temp Pulse Resp BP Sys/Alvarez Pulse Ox Last 24 Hr 97.4 F-98.3 F 60-69 16-18 92-125/46-75 98-100 Intake and Output 11/28/20 11/29/20 11/29/20 21:59 05:59 13:59 Intake Total 2100 1202 Output Total 2250 1000 Balance -150 202 Weight 131 lb 8 oz Intake & Output: Intake & Output 11/28/20 11/29/20 11/29/20 21:59 05:59 13:59 Intake Total 2100 1202 Output Total 2250 1000 Balance -150 202 Weight 131 lb 8 oz Intake: IV 902 Dextrose 5%-1/2Ns IV Solution 1 902 ,000 ml @ 75 mls/hr IV .[id number] [facility] Rx#:[id number] Oral 2100 300 Output: Void Amount 2250 1000 Other: Meal Lunch Percent of Meal Consumed 50% Urine Appearance Clear Clear Urine Color Bright Yellow Bright Yellow Urine Odor Normal Normal General appearance: cooperative and no acute distress GI/Abdominal GI/Abdominal exam: Present soft; Absent distended and tenderness Additional comments: Midline incision is clean dry and intact, cedrick intact. Point tenderness with a small amount of swelling just superior to the midline incision, most likely seroma A/P Narrative A/P Narrative: Patient is doing as good other than point tenderness and swelling just superior. Plan: CT scan abdomen pelvis, further plan based on CT findings. Time Spent With Patient Time: Total time spent is greater than 50% in coordination of care (as documented) at patient's floor/unit and/or counseling patient:
[2020-11-29] MEDS: HYDROmorphone 0.5 MG/0.5 ML SYRINGE IV PRN (11:14)
[2020-11-29] MEDS ORDERED: IOPAMIDOL 100 ML BOTTLE IV ONE (11:41)
--- NOTE | 2020-11-29 11:57 | Cat Scan Report ---
INDICATION: Abdominal swelling status post right hemicolectomy COMPARISON: Preoperative CT scan dated 11/24/2020 TECHNIQUE: Axial images were obtained through the abdomen and pelvis. Sagittally and coronally reformatted images. 80 mL Isovue 370 injected intravenously. Water soluble contrast material was given FINDINGS: Lung bases:Negative. No pulmonary parenchymal nodule. No pleural fluid or pericardial fluid Liver:Negative. No focal intrahepatic mass. No focal abnormality. Liver contour is smooth. No evidence for cirrhosis Gallbladder, bilary:Previous cholecystectomy. Mild intra and extrahepatic bile duct dilatation is stable. Common bile duct measures 8 mm in cross-sectional diameter. No detectable choledocholithiasis Spleen:No splenomegaly. Normal enhancement of splenic and portal veins. Pancreas:No pancreatic mass. No peripancreatic abnormality Adrenal glands:Negative Kidneys, ureters, bladder:No solid renal mass. No hydronephrosis. No obstructing calculi. There is no hydroureter. No ureteral stone No bladder calculi or detectable mass Gastrointestinal:Status post partial colectomy with resection of the cecum and probably a portion of the ascending colon. There is an enterocolonic anastomosis in the right side of the abdomen. Ascending colon is fluid-filled and mildly distended. There is fecal material within the transverse colon, descending colon, sigmoid colon. Small bowel is mildly prominent. Maximum cross-sectional diameter measures 2.0 cm. No evidence for high-grade obstruction. Contrast material in the distal ileum. No definite contrast material within the colon. Appendix: The appendix is removed Vascular:Negative abdominal aorta. Superior mesenteric artery and celiac trunk are normal. Normal opacification of the inferior mesenteric artery Lymphatic:No retroperitoneal or mesenteric adenopathy Mesentery, peritoneum: There is postoperative pneumoperitoneum. There is no intra-abdominal abscess. No intra-abdominal hematoma There is only minimal free fluid Reproductive:Patient has undergone previous hysterectomy. There is no adnexal mass Musculoskeletal:No lumbar compression fractures. Sacrum and pelvis are negative. No hip fracture. No abdominal wall or inguinal hernia. There are skin cedrick and a ventral midline incision. There is no subcutaneous abscess or significant seroma IMPRESSION: 1. Status post partial colectomy. Enterocolonic anastomosis as above 2. No high-grade mechanical small bowel obstruction. Small bowel is mildly prominent. Oral contrast material passes to the distal ileum 3. Postoperative pneumoperitoneum. No intraabdominal abscess or hematoma The exam was performed using radiation dose optimization techniques including, but not limited to, automated exposure control, adjustment of the mA and/or kV according to patient size and use of iterative reconstruction technique. Interpreted and Authenticated by: Irvin Schmidt 11/29/20
[2020-11-29] MEDS: 0.9 % SODIUM CHLORIDE 10 ML SYRINGE IV SCH ×2 (19:11→23:04)
[2020-11-30] MEDS: oxyCODONE HCL 5 MG TABLET PO PRN (01:45)
[2020-11-30] MEDS: DEXTROSE 5%-1/2NS 1,000 ML IV SCH (06:20)
[2020-11-30] MEDS: 0.9 % SODIUM CHLORIDE 10 ML SYRINGE IV SCH (06:58)
--- NOTE | 2020-11-30 09:47 | General Surgery Progress Note ---
SUBJECTIVE Subjective Patient information: Note initiated : 11/30/20 at 9:46 am Service Date, if different from initiated Date: [] Patient: Kat Benson 54 y/o F admitted on 11/24/20 for RLQ pain, n/v. Chief Complaint: [] Interval history: Patient is doing very well, tolerating regular diet, pain controlled and has had return of bowel function. Constitutional Vitals: Vital Signs Temp Pulse Resp BP Pulse Ox 98.3 F 71 14 101/59 97 11/30/20 07:19 11/30/20 07:19 11/30/20 07:19 11/30/20 07:19 11/30/20 07:19 Period Temp Pulse Resp BP Sys/Alvraez Pulse Ox Last 24 Hr 97.3 F-100.0 F 63-71 14-18 85-115/55-62 97-98 Intake and Output 11/29/20 11/30/20 11/30/20 21:59 05:59 13:59 Intake Total 680 240 600 Output Total 1500 1000 700 Balance -820 -760 -100 Intake & Output: Intake & Output 11/29/20 11/30/20 11/30/20 21:59 05:59 13:59 Intake Total 680 240 600 Output Total 1500 1000 700 Balance -820 -760 -100 Intake: IV 320 0 Dextrose 5%-1/2Ns IV Solution 1 320 0 ,000 ml @ 75 mls/hr IV .[id number] [facility] Rx#:[id number] Oral 360 240 600 Output: Void Amount 1050 1000 700 Urine/Stool Mix 450 Other: Meal Dinner Percent of Meal Consumed 50% Feeding Ability Independent Urine Appearance Clear Clear Clear Urine Color Bright Yellow Bright Yellow Bright Yellow Urine Odor Normal Normal Stool Size Smear Moderate Stool Color Brown Brown Stool Consistency Loose # Bowel Movements 1 General appearance: cooperative and no acute distress GI/Abdominal GI/Abdominal exam: Present soft; Absent distended and tenderness Additional comments: Incision is clean dry and intact A/P Narrative A/P Narrative: Postop right hemicolectomy. Tolerating regular diet, pain controlled and is ambulatory and has returned about. DC home, follow-up with me this week for staple removal. Time Spent With Patient Time: Total time spent is greater than 50% in coordination of care (as documented) at patient's floor/unit and/or counseling patient:
--- NOTE | 2020-12-12 10:50 | Discharge Summary ---
Discharge Provider Provider Patient information: Note initiated : 12/12/20 at 10:49 am Service Date, if different from initiated Date: [11/30/2020] Patient: Kat Benson 55 y/o F admitted on 11/24/20 for RLQ pain, n/v. Chief Complaint: Cecal volvulus Date of admission: 11/24/20 21:05 Discharge date: 11/30/20 Primary care physician: Maynor Hamm MD Consults: 11/24/20 Consult to Physician [CONS] Stat Comment: Consulting Provider: West Valente Reason For Exam: Physician to Consult COURSE Hospital Course Hospital course: Patient admitted for a cecal volvulus, patient was immediately taken to the operating room for exploratory laparotomy and right hemicolectomy. Postop patient progressed without difficulty and was tolerating regular diet, pain was controlled and was ambulatory on the day of discharge. Discharge diagnosis: Cecal volvulus, status post right hemicolectomy. Time Spent with Patient Time attestation: Total time spent providing and/or coordinating discharge services: Physical Examination Vital Signs Vital signs: Temp Pulse Resp BP Pulse Ox 98.3 F 71 14 101/59 97 11/30/20 10:30 11/30/20 10:30 11/30/20 10:30 11/30/20 07:19 11/30/20 10:30 Discharge Plan Patient/Caregiver Discharge Instructions Activity: increase activity as tolerated Diet: Regular Diet Instructions: Acetaminophen (By mouth), Ibuprofen (By mouth), Oxycodone, Slow Release (By mouth), Bowel Obstruction (DC), Exploratory Laparotomy (DC) Activity Restrictions/Additional Instructions: May resume home diet as tolerated. May resume medications as directed. May shower as tolerated. Activity as tolerated. Follow-up with Dr. Valente this week for staple removal. Take all medication as directed. Your prescription is with your discharge paperwork. Some medications were electronically transmitted to [facility] pharmacy. 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 Pain medication can cause constipation; take an over the counter stool softener and/or laxative while on pain medication. Return to ER for fever, chills, uncontrolled pain, inability to urinate or have a bowel movement, nausea and/or vomiting, swelling, redness, signs of infection, shortness of breath, chest pain, return of symptoms, or other acute symptom. This discharge packet is provided to you to help keep you informed about your care. We want to ensure you get everything you need when you go home. You will also be receiving a call from us in a few days to follow up with you and see how you are doing since your discharge. This gives us a chance to listen to any concerns you maybe experiencing since you were discharged or any additional needs you may have, as well as providing us feedback on your care experience. We strive to always provide excellent care and thank you for your feedback and for choosing [facility]. Prescriptions: New ibuprofen 800 mg tablet 800 mg PO TID PRN (Reason: pain) Qty: 60 RF: 0 acetaminophen [Tylenol 8 Hour] 650 mg tablet extended release 650 mg PO Q8H PRN (Reason: pain) Qty: 60 RF: 0 oxycodone 5 mg tablet 5 mg PO Q6H PRN (Reason: pain) Qty: 5 RF: 0 Continued omeprazole 40 mg capsule,delayed release(DR/EC) 40 mg PO QDAY 30 Days Qty: 30 RF: 3 valacyclovir 1 gram tablet 1,000 mg PO QDAY 90 Days Qty: 90 RF: 1 thyroid (pork) 60 mg tablet 60 mg PO QDAY RF: 0 estradiol 1 mg tablet 2 mg PO QDAY RF: 0 melatonin 10 mg capsule 20 mg PO HS RF: 0 progesterone micronized 200 mg capsule 200 mg PO QDAY RF: 0 phentermine 37.5 mg capsule 37.5 mg PO QDAY RF: 0 topiramate 25 mg tablet 25 mg PO QDAY RF: 0 (DME) C-testosterone 5mg/25ml Qty: 1 RF: 0 ergocalciferol (vitamin D2) 1,250 mcg (50,000 unit) capsule See Rx Instructions .ROUTE .COMPLEX RF: 0 Follow Up Plan Follow up with: West Valente MD [Physician] - (Please call office to schedule post-op appointment.) Maynor Hamm MD [Primary Care Provider] - (Please call office to schedule follow-up appointment within 7-10 days.) Patient Disposition: Home, Self-Care Overall status at discharge: patient is progressing back to baseline Discharge Orders: Discharge Order (Routine); Ordered 11/30/20 Ordered By: West Valente Pending Pending Pending: Diet Regular Diet Start TueNov 28 801 Shift Summary 11/30/20 03:08 Shift Summary by Yolanda Cooper Primary Diagnosis: Cecal Volvulus Day of Hospitalization: 6 Date of Surgery: 11/24 exploratory lap with sigmoid bowel resection. Pertinent Medical Diagnosis/Issues: Constipation, History Cholecystectomy, Esophageal Stricture Dilatation, Hiatal Hernia, GERD, Depression with Anxiety, PTSD, C-Sections Wound/Skin: Midline abdominal incision with [address] and wound edges well approximated. Open to air and no drainage, puffiness superior portion of incision. CT of the abdomen was negative. Interventions: Ambulate in hallways Vital Signs with Trends: VSS for baseline, temp as high as 100.4 F, RA SpO2 97% Meds: Oxycodone 5 mg tab 1 given twice, Tylenol 650 mg and Motrin 600 mg given once for upper abdominal/incisional pain, rating as high as 6/10. Lines/Tubes: 20g RAC flushed et patent. Lab/Radiology Results: CT Scan negative for any bowel obstruction/seroma. Date of last BM: Smear/small BM after first 240 ml warm prune juice. No results since second 240 ml warm prune juice. Elimination: Up ad colten to bathroom, voiding clear-yellow urine-2250 ml so far, active bowel tones, passing flatus. Recommendations/questions for MD: Patient takes [employer] brand stimulant laxatives 3-4 times daily for the last several years and only has a BM twice a week at best, if no BM may we add a laxative so she can D/C after a BM. Trends: Denies nausea, tolerating regular diet, incision open to air, declines to D/C until having had a BM and Patient returned to baseline with the exception of no bowel movement postop. Pt pleasant et talkative. Activity: Ambulating in hallway ad colten and tolerating well. Expected date of discharge: TBD Discharge Plan: To home with significant other, no DME needs. Initialized on 11/29/20 16:43 - END OF NOTE Initialized on 11/30/20 03:08 - END OF NOTE
== END 2020-11-30 10:35 | disposition home or self-care (01) | DRG 331 ==
LOC: ED 12:55 → SUR 18:09 → MEDSUR 21:05
PROVIDERS: ADMIT Surgery; ATTEND Surgery

== ENCOUNTER 2022-08-20 08:00 | Observation (INO) ==
[2022-08-18 11:04] LABS: Basophils # (Auto) 0.06 K/mcL (0.00-0.30); Basophils % (Auto) 0.7 % (0.0-2.0); Eosinophils # (Auto) 0.49 K/mcL (0.00-0.70); Eosinophils % (Auto) 5.5 % (0.0-7.0); Hematocrit 46.7 % (34.1-44.9); Hemoglobin 15.2 g/dL (11.2-15.7); Lymphocytes # (Auto) 2.73 K/mcL (1.50-4.80); Lymphocytes % (Auto) 30.6 % (15.5-49.0); Mean Cell Volume 92.8 fL (80.0-100.0); Mean Corpuscular HGB Conc 32.5 g/dL (31.0-36.0); Mean Platelet Volume 11.2 fL (8.8-12.5); Monocytes # (Auto) 0.74 K/mcL (0.10-0.90); Monocytes % (Auto) 8.3 % (1.0-12.0); Platelet Count 224 K/mcL (140-440); RBC 5.03 M/mcL (3.59-5.38); Red Cell Distribution Width 13.1 % (11.5-14.5); WBC 8.9 K/mcL (4.5-11.0)
[2022-08-18 12:23] LABS: Partial Thromboplastin Time 28.5 sec (20.0-37.0)
[2022-08-18 12:24] LABS: INR 0.9 (0.9-1.1)
[2022-08-18 14:16] LABS: ALT/SGPT 70 U/L (<40); AST/SGOT 44 U/L (<32); Albumin 4.6 gm/dL (3.2-5.2); Albumin/Globulin Ratio 1.5 (1.0-2.3); Alkaline Phosphatase 48 U/L (39-117); Bilirubin,Total 0.3 mg/dL (0.1-1.0); Blood Urea Nitrogen 13 mg/dL (6-20); Calcium 9.8 mg/dL (8.6-10.4); Carbon Dioxide 27 mmol/L (22-30); Chloride 99 mmol/L (96-108); Globulin 3.1 gm/dL (2.2-3.7); Glomerular Filtration Rate 83; Glucose 92 mg/dL (70-105)
--- NOTE | 2022-08-18 14:16 | XRay Report ---
HISTORY: Preop for hernia repair FINDINGS: The lungs are clear. The heart, mediastinum, roz and pleura are normal. Spine has a moderate kyphosis IMPRESSION: Normal chest. Interpreted and Authenticated by: Song Gastelum 08/18/22
--- NOTE | 2022-08-19 17:54 | EKG ---
[facility] Test Date: 2022-08-18 Pat Name: Kat Benson Department: RT Room: Gender: Female Fell Cutter: : 1965 Requested By: Ilya Cox Order Number: [id number] Reading MD: Irvin Gastelum M.D. Measurements Intervals [place] Rate: 77 P: 64 WI: 152 QRS: 1 QRSD: 73 T: 36 QT: 357 QTc: 405 Interpretive Statements Sinus rhythm Low voltage, precordial leads Electronically Signed On 08-19-2022 17:53:55 PDT by Irvin Gastelum M.D. [id number]
[~2022-08-20 08:00] MED LIST: IPRATROPIUM/ALBUTEROL 3 ML AMPUL.NEB NEB PRN; SCOPOLAMINE 1 PATCH PATCH TOPICAL PRN; ceFAZolin 2 GM in DEXTROSE 5% IN WATER 50 ML IV SCH
[2022-08-20] MEDS ORDERED: fentaNYL 250 MCG/5 ML VIAL IV ONE (09:57)
[2022-08-20] MEDS ORDERED: DEXAMETHASONE 10 MG/ML VIAL ONE (09:57)
[2022-08-20] MEDS ORDERED: LIDOCAINE HCL/PF 100 MG/5 ML SYRINGE IV ONE (09:57)
[2022-08-20] MEDS ORDERED: ROCURONIUM 10 MG/ML ML IV ONE (09:57)
[2022-08-20] MEDS ORDERED: KETOROLAC 30 MG/ML VIAL ONE (09:57)
[2022-08-20] MEDS ORDERED: KETAMINE 50 MG/ML Syringe (ANEST) IV ONE (09:57)
[2022-08-20] MEDS ORDERED: GLYCOPYRROLATE 0.2 MG/ML VIAL IV ONE (09:57)
[2022-08-20] MEDS ORDERED: HYDROmorphone* 2 MG/ML VIAL ONE (09:57)
[2022-08-20] MEDS ORDERED: SUGAMMADEX SODIUM 200 MG/2 ML VIAL IV ONE (09:57)
[2022-08-20] MEDS ORDERED: MAGNESIUM SULFATE 2 GM/50 ML BAG IV ONE (09:57)
[2022-08-20] MEDS ORDERED: PROPOFOL 200 MG/20 ML VIAL IV ONE (09:57)
[2022-08-20] MEDS ORDERED: ONDANSETRON 4 MG/2 ML VIAL ONE (09:57)
[2022-08-20] MEDS ORDERED: GENTAMICIN SULFATE 800 MG/20 ML VIAL IR ONE (10:33)
[2022-08-20] MEDS ORDERED: VANCOMYCIN 1 GM VIAL TOPICAL SCH (10:45)
[2022-08-20] MEDS ORDERED: ACETAMINOPHEN 1,000 MG/100 ML BAG IV ONE ×2 (11:24→15:13)
[2022-08-20] MEDS ORDERED: METOCLOPRAMIDE 10 MG/2 ML VIAL IV PRN (11:24)
[2022-08-20] MEDS ORDERED: ONDANSETRON 4 MG/2 ML VIAL IV PRN (11:24)
[2022-08-20] MEDS ORDERED: METHOCARBAMOL 1,000 MG/10 ML VIAL IV PRN (11:24)
[2022-08-20] MEDS ORDERED: HYDROmorphone 0.5 MG/0.5 ML SYRINGE IV PRN (11:24)
[2022-08-20] MEDS ORDERED: IPRATROPIUM/ALBUTEROL 3 ML AMPUL.NEB NEB PRN (11:24)
[2022-08-20] MEDS ORDERED: LORazepam 2 MG/ML VIAL IV ONE (11:25)
--- NOTE | 2022-08-20 11:44 | Brief Operative Note ---
Brief Operative Note Date of procedure: 08/20/22 Pre-op diagnosis: incarcerated incisional hernia Post-op diagnosis: other (incarcerated incisional hernia 11x7cm) Procedure: incisional hernia repair with [id number] skirted mash graft fascial defect 11x7cm Grafts/Implants: Yes (surgimesh graft ( 11x15 cm)) Anesthesia: GETA Findings: large midline fascial defect with incarcerated omentum hernia defect 11x7cm full thickness circumferential subcutaneous flap development Complications: none Surgeon: Ilya Cox Estimated blood loss (cc): 100 Specimens Removed/Pathology: none sent Condition: stable Disposition: PACU
[2022-08-20] MEDS: fentaNYL 100 MCG/2 ML VIAL IV PRN ×4 (12:18→12:39)
[2022-08-20] MEDS: HYDROmorphone 1 MG/ML SYRINGE IV PRN ×3 (13:01→16:58)
[2022-08-20] MEDS: 0.9 % SODIUM CHLORIDE 1,000 ML IV SCH (13:02)
[2022-08-20] MEDS: oxyCODONE IR 5 MG TABLET PO PRN ×2 (13:18→20:25)
[2022-08-20] MEDS: ONDANSETRON 4 MG/2 ML VIAL IV PRN ×2 (13:21→20:26)
[2022-08-20] MEDS: METOCLOPRAMIDE 10 MG/2 ML VIAL IV SCH ×2 (13:21→16:58)
[2022-08-20] MEDS: cefTRIAXone 2 GM in DEXTROSE 5% IN WATER 50 ML IV SCH (13:22)
[2022-08-20] MEDS: 0.9 % SODIUM CHLORIDE 10 ML SYRINGE IV SCH ×2 (13:26→20:26)
[2022-08-20] MEDS: ACETAMINOPHEN 1,000 MG/100 ML BAG IV SCH (16:58)
[2022-08-20] MEDS: SENNOSIDES 1 TABLET PO SCH (20:25)
[2022-08-20] MEDS: DOCUSATE SODIUM 100 MG CAPSULE PO SCH (20:25)
[2022-08-20] MEDS: OMEPRAZOLE 20 MG CAPSULE PO PRN (22:30)
[2022-08-21] MEDS: ACETAMINOPHEN 1,000 MG/100 ML BAG IV SCH ×5 (00:26→23:34)
[2022-08-21] MEDS: 0.9 % SODIUM CHLORIDE 1,000 ML IV SCH ×4 (00:26→23:31)
[2022-08-21] MEDS: METOCLOPRAMIDE 10 MG/2 ML VIAL IV SCH ×5 (00:27→23:34)
[2022-08-21] MEDS: 0.9 % SODIUM CHLORIDE 10 ML SYRINGE IV SCH ×3 (06:04→20:48)
[2022-08-21 06:40] LABS: Basophils # (Auto) 0.01 K/mcL (0.00-0.30); Basophils % (Auto) 0.1 % (0.0-2.0); Eosinophils # (Auto) 0 K/mcL (0.00-0.70); Eosinophils % (Auto) 0 % (0.0-7.0); Hematocrit 40.4 % (34.1-44.9); Hemoglobin 13.2 g/dL (11.2-15.7); Lymphocytes # (Auto) 1.45 K/mcL (1.50-4.80); Lymphocytes % (Auto) 9.1 % (15.5-49.0); Mean Cell Volume 93.1 fL (80.0-100.0); Mean Corpuscular HGB Conc 32.7 g/dL (31.0-36.0); Mean Platelet Volume 10.4 fL (8.8-12.5); Monocytes # (Auto) 1.05 K/mcL (0.10-0.90); Monocytes % (Auto) 6.6 % (1.0-12.0); Neutrophils % (Auto) 83.6 % (38.0-78.0); Platelet Count 217 K/mcL (140-440); RBC 4.34 M/mcL (3.59-5.38); WBC 15.9 K/mcL (4.5-11.0)
[2022-08-21 07:02] LABS: ALT/SGPT 102 U/L (<40); AST/SGOT 62 U/L (<32); Albumin 3.6 gm/dL (3.2-5.2); Albumin/Globulin Ratio 1.2 (1.0-2.3); Alkaline Phosphatase 47 U/L (39-117); Bilirubin,Direct < 0.2 mg/dL (0-0.3); Bilirubin,Total 0.3 mg/dL (0.1-1.0); Blood Urea Nitrogen 13 mg/dL (6-20); Calcium 8.4 mg/dL (8.6-10.4); Carbon Dioxide 23 mmol/L (22-30); Chloride 106 mmol/L (96-108); Globulin 2.9 gm/dL (2.2-3.7); Glomerular Filtration Rate 83; Glucose 111 mg/dL (70-105); Lactate Dehydrogenase 193 U/L (135-225); Phosphorous 3.2 mg/dL (2.5-4.5); Triglycerides 79 mg/dL (<150)
[2022-08-21] MEDS: HYDROmorphone 1 MG/ML SYRINGE IV PRN ×5 (07:27→20:50)
[2022-08-21] MEDS: ONDANSETRON 4 MG/2 ML VIAL IV PRN ×2 (07:28→14:37)
[2022-08-21] MEDS: oxyCODONE IR 5 MG TABLET PO PRN ×4 (07:28→18:42)
[2022-08-21] MEDS: cefTRIAXone 2 GM in DEXTROSE 5% IN WATER 50 ML IV SCH (09:27)
[2022-08-21] MEDS: DOCUSATE SODIUM 100 MG CAPSULE PO SCH ×2 (09:27→20:48)
[2022-08-21] MEDS: PROMETHAZINE 25 MG/ML VIAL IV PRN (09:31)
--- NOTE | 2022-08-21 13:20 | General Surgery Progress Note ---
SUBJECTIVE Subjective Patient information: Note initiated : 08/21/22 at 1:14 pm Service Date, if different from initiated Date: [] Patient: Kat Benson 56 y/o F admitted on . Chief Complaint: [] Principal diagnosis: Incisional hernia Interval history: Patient states that she feels better however she had difficulty with pain control overnight. She had nausea most of the night but has been able to tolerate a few liquids today. She has not had flatus or bowel movement. She is afebrile. She still requires frequent analgesics. Constitutional Vitals: Vital Signs Temp Pulse Resp BP Pulse Ox O2 Del Method O2 Flow Rate 97.8 F 75 20 138/62 95 Room Air 2 08/21/22 12:00 08/21/22 12:00 08/21/22 07:22 08/21/22 12:00 08/21/22 12:00 08/21/22 12:00 08/20/22 12:34 Period Temp Pulse Resp BP Sys/Alvarez Pulse Ox O2 Del Method O2 Flow Rate Last 24 Hr 97.8 F-99.3 F 71-92 14-20 103-138/60-80 93-99 Room Air-Room Air Intake and Output 08/21/22 08/21/22 08/21/22 03:59 11:59 19:59 Intake Total 1100 1450 100 Output Total 825 90 Balance 275 1360 100 Weight 174 lb 9 oz Intake & Output: Intake & Output 08/21/22 08/21/22 08/21/22 03:59 11:59 19:59 Intake Total 1100 1450 100 Output Total 825 90 Balance 275 1360 100 Weight 174 lb 9 oz Intake: IV 1100 1150 100 Sodium Chloride 0.9% 1,000 ml @ 1000 1000 100 mls/hr IV .Q10H [facility] Rx#: [id number] Rocephin 2 gm In Dextrose 5% in 50 Water 50 ml @ 100 mls/hr IV Q24H [facility] Rx#:[id number] Oral 300 Output: Drainage 45 #1 KAREN 10 #2 KAREN 20 #3 KAREN 15 Drainage 45 #1 KAREN 10 #2 KAREN 20 #3 KAREN 15 Void Amount 825 Other: Urine Appearance Clear Urine Color Yellow Urine Odor Normal Respiratory Respiratory exam: Present CTAB Cardiovascular Cardiovascular exam: Present normal rate and rhythm, RRR, +S1 and +S2; Absent JVD GI/Abdominal GI/Abdominal exam: Present diminished bowel sounds and distended Additional comments: All 3 drains have heavy bloody drainage Extremities Exam Extremities exam: Present full ROM, normal inspection and neurovascular intact Neurological Exam Neurological exam: Present alert and oriented X3; Absent motor sensory deficit Psychiatric Psychiatric exam: Present anxious A/P Assessment and plan (1) Incisional hernia without mention of obstruction or gangrene: Status: Acute (2) Postoperative nausea: Status: Acute (3) Adynamic ileus: Status: Acute (4) GERD (gastroesophageal reflux disease): Status: Chronic Qualifiers: Esophagitis presence: with esophagitis Qualified Code(s): K21.0 - Gastro-esophageal reflux disease with esophagitis Plan Patient's diet will not be advanced because of nausea. Hopefully she will not need nasogastric decompression. Will monitor output through her drains very closely. Check labs in the morning Delay consideration for discharge at this time Time Spent With Patient Time: Total time spent is greater than 50% in coordination of care (as documented) at patient's floor/unit and/or counseling patient:
[2022-08-21] MEDS: SENNOSIDES 1 TABLET PO SCH (20:48)
[2022-08-22] MEDS: oxyCODONE IR 5 MG TABLET PO PRN ×6 (01:05→20:56)
[2022-08-22] MEDS: HYDROmorphone 1 MG/ML SYRINGE IV PRN ×7 (03:52→18:01)
[2022-08-22] MEDS: 0.9 % SODIUM CHLORIDE 1,000 ML IV SCH ×4 (04:41→23:34)
[2022-08-22] MEDS: ACETAMINOPHEN 1,000 MG/100 ML BAG IV SCH ×4 (05:23→23:33)
[2022-08-22] MEDS: METOCLOPRAMIDE 10 MG/2 ML VIAL IV SCH ×4 (05:23→23:33)
[2022-08-22] MEDS: 0.9 % SODIUM CHLORIDE 10 ML SYRINGE IV SCH ×3 (05:24→20:56)
[2022-08-22] MEDS: ONDANSETRON 4 MG/2 ML VIAL IV PRN ×3 (07:35→18:04)
[2022-08-22] MEDS: OMEPRAZOLE 20 MG CAPSULE PO PRN (07:35)
[2022-08-22] MEDS: DOCUSATE SODIUM 100 MG CAPSULE PO SCH ×2 (07:58→20:55)
[2022-08-22] MEDS: cefTRIAXone 2 GM in DEXTROSE 5% IN WATER 50 ML IV SCH (07:58)
--- NOTE | 2022-08-22 09:13 | General Surgery Progress Note ---
SUBJECTIVE Subjective Patient information: Note initiated : 08/22/22 at 9:11 am Service Date, if different from initiated Date: [] Patient: Kat Benson 56 y/o F admitted on 08/21/22. Chief Complaint: [] She looks good this morning, having some pain, has been on clear sips, no flatus yet Principal diagnosis: Incisional hernia Constitutional Vitals: Vital Signs Temp Pulse Resp BP Pulse Ox O2 Del Method O2 Flow Rate 98.6 F 71 16 142/71 95 Room Air 2 08/22/22 08:18 08/22/22 08:18 08/22/22 08:18 08/22/22 08:18 08/22/22 08:18 08/22/22 08:18 08/20/22 12:34 Period Temp Pulse Resp BP Sys/Alvarez Pulse Ox O2 Del Method O2 Flow Rate Last 24 Hr 97.8 F-98.8 F 58-76 16-19 116-142/61-71 95-99 Room Air-Room Air Intake and Output 08/21/22 08/22/22 08/22/22 19:59 03:59 11:59 Intake Total 945 1532 100 Output Total 900 2795 Balance 45 -1263 100 Weight 197 lb 12.8 oz Intake & Output: Intake & Output 08/21/22 08/22/22 08/22/22 19:59 03:59 11:59 Intake Total 945 1532 100 Output Total 900 2795 Balance 45 -1263 100 Weight 197 lb 12.8 oz Intake: IV 745 732 100 Sodium Chloride 0.9% 1,000 ml @ 545 632 100 mls/hr IV .Q10H [facility] Rx#: [id number] Oral 200 800 Output: Drainage 50 70 #1 KAREN 10 10 #2 KAREN 25 40 #3 KAREN 15 20 Void Amount 850 2725 Other: Meal Lunch Percent of Meal Consumed 100% Urine Appearance Clear Urine Color Yellow Yellow Urine Odor Normal Exam: looks good, non toxic, NAD Respiratory Respiratory exam: Present normal respiratory exam Cardiovascular Cardiovascular exam: Present RRR GI/Abdominal Additional comments: drains benign, soft and flat, binder in place Extremities Exam Additional comments: well perfused A/P Assessment and plan (1) Incisional hernia without mention of obstruction or gangrene: Assessment and plan: POD #2 Ventral Incisional Hernia Repair with Mesh Doing Well Increase activity as tolerated Cautioned to go slow with orals until having bowel function Re check labs in AM Status: Acute Time Spent With Patient Time: Total time spent is greater than 50% in coordination of care (as documented) at patient's floor/unit and/or counseling patient:
[2022-08-22] MEDS: PROMETHAZINE 25 MG/ML VIAL IV PRN (11:23)
[2022-08-22] MEDS: SENNOSIDES 1 TABLET PO SCH (20:55)
[2022-08-23] MEDS: oxyCODONE IR 5 MG TABLET PO PRN ×3 (00:58→13:09)
[2022-08-23] MEDS: HYDROmorphone 1 MG/ML SYRINGE IV PRN (04:02)
[2022-08-23] MEDS: METOCLOPRAMIDE 10 MG/2 ML VIAL IV SCH ×2 (05:45→11:21)
[2022-08-23] MEDS: ACETAMINOPHEN 1,000 MG/100 ML BAG IV SCH ×2 (05:45→11:21)
[2022-08-23] MEDS: 0.9 % SODIUM CHLORIDE 10 ML SYRINGE IV SCH (05:47)
[2022-08-23 07:04] LABS: Hematocrit 40.9 % (34.1-44.9); Hemoglobin 12.9 g/dL (11.2-15.7); Mean Cell Volume 95.8 fL (80.0-100.0); Mean Corpuscular HGB Conc 31.5 g/dL (31.0-36.0); Mean Platelet Volume 10.3 fL (8.8-12.5); Platelet Count 190 K/mcL (140-440); RBC 4.27 M/mcL (3.59-5.38); Red Cell Distribution Width 13.2 % (11.5-14.5); WBC 8.4 K/mcL (4.5-11.0)
[2022-08-23 07:38] LABS: Blood Urea Nitrogen 5 mg/dL (6-20); Calcium 8.3 mg/dL (8.6-10.4); Carbon Dioxide 26 mmol/L (22-30); Chloride 106 mmol/L (96-108); Glomerular Filtration Rate 83; Glucose 89 mg/dL (70-105)
[2022-08-23] MEDS: ONDANSETRON 4 MG/2 ML VIAL IV PRN (08:44)
[2022-08-23] MEDS: cefTRIAXone 2 GM in DEXTROSE 5% IN WATER 50 ML IV SCH (09:56)
[2022-08-23] MEDS: DOCUSATE SODIUM 100 MG CAPSULE PO SCH (09:59)
[2022-08-23] MEDS: 0.9 % SODIUM CHLORIDE 1,000 ML IV SCH (11:29)
--- NOTE | 2022-08-23 12:42 | Discharge Summary ---
Discharge Provider Provider IMPORTANT FOLLOW-UP INFORMATION FOR PCP: Patient information: Note initiated : 08/23/22 at 12:41 pm Service Date, if different from initiated Date: [] Patient: Kat Benson 56 y/o F admitted on 08/21/22. Chief Complaint: [] Date of admission: 08/21/22 11:55 Discharge date: 08/23/22 Primary care physician: Maynor Hamm MD Admitting clinician: Ilya Cox Attending physician on admission: Ilya Cox Attending physician on discharge: Ilya Cox Discharging clinician: Ilya Cox COURSE Hospital Course Hospital course: 56-year-old female with history incisional hernia which was progressively enlarging. She underwent laparotomy with repair of a large midline incisional hernia with incarcerated omentum. She had a 10 x 15 surgery mesh underlay graft placed. She developed adynamic ileus in the postoperative.. She has gradually improved and is now having flatus. She is tolerating liquids but is not ready for regular diet. She is controlled with oral medication so she is stable for discharge home. She is advised to stay on full liquids for the next few days until she has a bowel movement. She will be treated with Reglan and Zofran orally to control nausea and stimulate intestinal activity. I will follow her up in 2 weeks. Discharge diagnosis: Incarcerated incisional hernia Secondary discharge diagnosis: Postoperative adynamic ileus Gastroesophageal reflux disease Depression with anxiety PTSD Reason for admission: Postoperative incisional hernia with incarcerated omentum Procedures: Incisional hernia repair with mesh graft underlay Pertinent studies/significant findings: None Complications: None Time Spent with Patient Time attestation: Total time spent providing and/or coordinating discharge services: Time spent: Less than 30 minutes Physical Examination Vital Signs Vital signs: Temp Pulse Resp BP Pulse Ox O2 Del Method O2 Flow Rate 98.3 F 69 16 119/68 97 Room Air 2 08/23/22 12:00 08/23/22 12:08/23/22 12:08/23/22 12:08/23/22 12:00 08/23/22 12:00 08/20/22 12:34 General physical appearance General physical exam: well developed, well nourished, no distress and moderate pain Eyes Eye exam: PERRL and normal ocular movement ENT ENT exam: normal mucosa Head Head exam IM: Present atraumatic, normal inspection and normocephalic Neck Neck exam: no masses, no bruits, trachea midline and no lymphadenopathy Cardiovascular Cardiovascular exam IM: Present normal rate and rhythm, RRR, +S1 and +S2; Absent JVD Respiratory Respiratory exam: normal expansion, normal respiratory effort and clear to auscultation Abdomen Abdomen: Present tender, bowel sounds (Hypoactive bowel sounds), surgical scars (Patient hypoactive bowel sounds; moderate distention; moderate output but drainage) and distended; Absent guarding Integumentary Integumentary: Present no rash, no growths and no abnormal pigmentation Neurologic Neurologic: Present normal coordination and normal sensation Musculoskeletal Musculoskeletal: Present normal gait and normal posture Psychiatric Psychiatric: Present oriented to time, oriented to person, oriented to place, speech is normal and memory intact Discharge Plan Patient/Caregiver Discharge Instructions Activity: increase activity as tolerated Diet: Full Liquid Prescriptions: New metoclopramide HCl 10 mg tablet 10 mg PO Q6H PRN (Reason: nausea and vomiting) Qty: 60 4RF ondansetron 4 mg tablet,disintegrating 4 mg PO Q6H Qty: 60 0RF oxycodone-acetaminophen [Endocet] 10-325 mg tablet 1 tab PO Q4H PRN (Reason: Pain) Qty: 60 0RF Continued Abdomen Binder Brace See Rx Instructions .ROUTE .COMPLEX Qty: 1 0RF Rx Instructions: Apply Binder brace to abdomen during the day, OK to remove when resting/sleeping. omeprazole 20 mg capsule,delayed release(DR/EC) 40 mg PO ACB testosterone 200 mg Pellet 200 mg SUBCUT ONCE Patient Comments: EVERY 3 MONTHS valacyclovir 1 gram tablet 1,000 mg PO DAILY Adrenal Complex 2 tab PO DAILY MCT Oil 14 gram-120 kcal/15 mL Oil 15 ml PO DAILY Estrovite K5 1 cap PO DAILY Neuroflame K46 2 cap PO DAILY Progestoid K4 1 cap PO DAILY Prescription drug monitoring program results: PDMP not reviewed Follow Up Plan Follow up with: Ilya Cox MD [Physician] - Patient Disposition: Home, Self-Care Prognosis: Good Rehab Potential: Good I certify that the patient requires SNF services: No Overall status at discharge: patient is progressing back to baseline Discharge Orders: Discharge Order (Routine); Ordered 08/23/22 Ordered By: Ilya Cox Pending Pending Pending: Resuscitation Status Resuscitate (Full Code) Diet Clear Liquid Diet Start TueAug 20 1149 Docusate Sodium (Docusate Sodium 100 Mg Capsule) 100 mg PO BID [facility] Last Admin: 08/23/22 09:59 Dose: 100 mg Documented By: [email or web address] Admin: 08/22/22 20:55 Dose: 100 mg Documented By: Admin: 08/22/22 07:58 Dose: 100 mg Documented By: Admin: 08/21/22 20:48 Dose: 100 mg Documented By: Admin: 08/21/22 09:27 Dose: 100 mg Documented By: Admin: 08/20/22 20:25 Dose: 100 mg Documented By: ISAAC Hydromorphone HCl (Hydromorphone 1 Mg/Ml Syringe) 1 mg IV Q2HP PRN; Protocol PRN Reason: Per Pain Protocol Last Admin: 08/23/22 04:02 Dose: 1 mg Documented By: Admin: 08/22/22 18:01 Dose: 1 mg Documented By: Admin: 08/22/22 15:59 Dose: 1 mg Documented By: Admin: 08/22/22 13:13 Dose: 1 mg Documented By: Admin: 08/22/22 11:18 Dose: 1 mg Documented By: Admin: 08/22/22 09:29 Dose: 1 mg Documented By: Admin: 08/22/22 07:39 Dose: 1 mg Documented By: Admin: 08/22/22 03:52 Dose: 1 mg Documented By: Admin: 08/21/22 20:50 Dose: 1 mg Documented By: Admin: 08/21/22 17:18 Dose: 1 mg Documented By: Admin: 08/21/22 14:35 Dose: 1 mg Documented By: Admin: 08/21/22 09:27 Dose: 1 mg Documented By: Admin: 08/21/22 07:27 Dose: 1 mg Documented By: Admin: 08/20/22 16:58 Dose: 1 mg Documented By: Admin: 08/20/22 15:09 Dose: 1 mg Documented By: Admin: 08/20/22 13:01 Dose: 1 mg Documented By: STEWART Sodium Chloride (Sodium Chloride 0.9%) 1,000 mls @ 100 mls/hr IV .Q10H DARLENE Last Admin: 08/23/22 11:29 Dose: 100 mls/hr Documented By: Infusion: 08/23/22 09:34 Dose: 100 mls/hr Documented By: Admin: 08/22/22 23:34 Dose: 100 mls/hr Documented By: Infusion: 08/22/22 23:16 Dose: 100 mls/hr Documented By: Admin: 08/22/22 13:16 Dose: 100 mls/hr Documented By: Infusion: 08/22/22 13:16 Dose: 100 mls/hr Documented By: Admin: 08/22/22 10:25 Dose: 100 mls/hr Documented By: Infusion: 08/22/22 09:31 Dose: 100 mls/hr Documented By: Admin: 08/22/22 04:41 Dose: Not Given Documented By: Admin: 08/21/22 23:31 Dose: 100 mls/hr Documented By: Infusion: 08/21/22 23:31 Dose: 100 mls/hr Documented By: Admin: 08/21/22 17:12 Dose: 100 mls/hr Documented By: Infusion: 08/21/22 17:12 Dose: 100 mls/hr Documented By: Admin: 08/21/22 11:45 Dose: 100 mls/hr Documented By: Infusion: 08/21/22 10:26 Dose: 100 mls/hr Documented By: Admin: 08/21/22 00:26 Dose: 100 mls/hr Documented By: Infusion: 08/20/22 23:02 Dose: 100 mls/hr Documented By: Admin: 08/20/22 13:02 Dose: 100 mls/hr Documented By: STEWART Ceftriaxone Sodium 2 gm/ (Dextrose) 50 mls @ 100 mls/hr IV Q24H DARLENE; Protocol Stop: 08/24/22 12:29 Last Admin: 08/23/22 09:56 Dose: 100 mls/hr Documented By: [email or web address] Infusion: 08/22/22 08:30 Dose: 0 mls/hr Documented By: Admin: 08/22/22 07:58 Dose: 100 mls/hr Documented By: Infusion: 08/21/22 10:30 Dose: 0 mls/hr Documented By: Admin: 08/21/22 09:27 Dose: 100 mls/hr Documented By: Infusion: 08/20/22 13:52 Dose: 0 mls/hr Documented By: Admin: 08/20/22 13:22 Dose: 100 mls/hr Documented By: [email or web address] Acetaminophen (Ofirmev) 1,000 mg in 100 mls @ 200 mls/hr IV Q6H DARLENE Last Admin: 08/23/22 11:21 Dose: 200 mls/hr Documented By: [email or web address] Infusion: 08/23/22 06:19 Dose: 0 mls/hr Documented By: Admin: 08/23/22 05:45 Dose: 200 mls/hr Documented By: Infusion: 08/23/22 00:27 Dose: 0 mls/hr Documented By: Admin: 08/22/22 23:33 Dose: 200 mls/hr Documented By: Infusion: 08/22/22 17:57 Dose: 0 mls/hr Documented By: Admin: 08/22/22 17:10 Dose: 200 mls/hr Documented By: Infusion: 08/22/22 13:46 Dose: 0 mls/hr Documented By: Admin: 08/22/22 13:16 Dose: 200 mls/hr Documented By: Infusion: 08/22/22 06:30 Dose: 0 mls/hr Documented By: Admin: 08/22/22 05:23 Dose: 200 mls/hr Documented By: Infusion: 08/22/22 00:04 Dose: 0 mls/hr Documented By: Admin: 08/21/22 23:34 Dose: 200 mls/hr Documented By: Infusion: 08/21/22 18:44 Dose: 0 mls/hr Documented By: Admin: 08/21/22 17:11 Dose: 200 mls/hr Documented By: Infusion: 08/21/22 12:05 Dose: 0 mls/hr Documented By: Admin: 08/21/22 11:35 Dose: 200 mls/hr Documented By: Infusion: 08/21/22 06:33 Dose: 0 mls/hr Documented By: Admin: 08/21/22 06:03 Dose: 200 mls/hr Documented By: Infusion: 08/21/22 00:56 Dose: 0 mls/hr Documented By: Admin: 08/21/22 00:26 Dose: 200 mls/hr Documented By: Infusion: 08/20/22 17:28 Dose: 0 mls/hr Documented By: Admin: 08/20/22 16:58 Dose: 200 mls/hr Documented By: STEWART Metoclopramide HCl (Metoclopramide 10 Mg/2 Ml Vial) 10 mg IV Q6 [facility] Admin: 08/23/22 11:21 Dose: 10 mg Documented By: [email or web address] Admin: 08/23/22 05:45 Dose: 10 mg Documented By: Admin: 08/22/22 23:33 Dose: 10 mg Documented By: Admin: 08/22/22 17:10 Dose: 10 mg Documented By: Admin: 08/22/22 13:12 Dose: 10 mg Documented By: Admin: 08/22/22 05:23 Dose: 10 mg Documented By: Admin: 08/21/22 23:34 Dose: 10 mg Documented By: Admin: 08/21/22 17:11 Dose: 10 mg Documented By: Admin: 08/21/22 11:36 Dose: 10 mg Documented By: Admin: 08/21/22 06:04 Dose: 10 mg Documented By: Admin: 08/21/22 00:27 Dose: 10 mg Documented By: Admin: 08/20/22 16:58 Dose: 10 mg Documented By: Admin: 08/20/22 13:21 Dose: 10 mg Documented By: STEWART Omeprazole (Omeprazole 20 Mg Capsule) 40 mg PO BIDAC PRN PRN Reason: Heartburn Last Admin: 08/22/22 07:35 Dose: 40 mg Documented By: Admin: 08/20/22 22:30 Dose: 40 mg Documented By: ISAAC Ondansetron HCl (Ondansetron 4 Mg/2 Ml Vial) 4 mg IV Q6HP PRN PRN Reason: Nausea And Vomiting Last Admin: 08/23/22 08:44 Dose: 4 mg Documented By: [email or web address] Admin: 08/22/22 18:04 Dose: 4 mg Documented By: Admin: 08/22/22 13:12 Dose: 4 mg Documented By: Admin: 08/22/22 07:35 Dose: 4 mg Documented By: Admin: 08/21/22 14:37 Dose: 4 mg Documented By: Admin: 08/21/22 07:28 Dose: 4 mg Documented By: Admin: 08/20/22 20:26 Dose: 4 mg Documented By: Admin: 08/20/22 13:21 Dose: 4 mg Documented By: STEWART Oxycodone HCl (Oxycodone Ir 5 Mg Tablet) 10 mg PO Q4HP PRN; Protocol PRN Reason: Per Pain Protocol Last Admin: 08/23/22 08:44 Dose: 10 mg Documented By: [email or web address] Admin: 08/23/22 00:58 Dose: 10 mg Documented By: Admin: 08/22/22 20:56 Dose: 10 mg Documented By: Admin: 08/22/22 15:59 Dose: 10 mg Documented By: Admin: 08/22/22 11:17 Dose: 10 mg Documented By: Admin: 08/22/22 07:35 Dose: 10 mg Documented By: Admin: 08/22/22 01:05 Dose: 10 mg Documented By: Admin: 08/21/22 18:42 Dose: 10 mg Documented By: Admin: 08/21/22 14:52 Dose: 10 mg Documented By: Admin: 08/21/22 11:36 Dose: 10 mg Documented By: Admin: 08/21/22 07:28 Dose: 10 mg Documented By: Admin: 08/20/22 20:25 Dose: 10 mg Documented By: Admin: 08/20/22 13:18 Dose: 10 mg Documented By: STEWART Promethazine HCl (Promethazine 25 Mg/Ml Vial) 12.5 mg IV Q6HP PRN PRN Reason: Nausea And Vomiting Last Admin: 08/22/22 11:23 Dose: 12.5 mg Documented By: Admin: 08/21/22 09:31 Dose: 12.5 mg Documented By: STEWART Senna (Sennosides 1 Tablet) 2 tab PO HS [facility] Last Admin: 08/22/22 20:55 Dose: 2 tab Documented By: Admin: 08/21/22 20:48 Dose: 2 tab Documented By: Admin: 08/20/22 20:25 Dose: 2 tab Documented By: ISAAC Sodium Chloride (0.9 % Sodium Chloride 10 Ml Syringe) 10 ml IV Q8 [facility] Last Admin: 08/23/22 05:47 Dose: Not Given Documented By: Admin: 08/22/22 20:56 Dose: Not Given Documented By: Admin: 08/22/22 13:24 Dose: Not Given Documented By: Admin: 08/22/22 05:24 Dose: Not Given Documented By: Admin: 08/21/22 20:48 Dose: 10 ml Documented By: Admin: 08/21/22 13:26 Dose: Not Given Documented By: Admin: 08/21/22 06:04 Dose: Not Given Documented By: Admin: 08/20/22 20:26 Dose: Not Given Documented By: Admin: 08/20/22 13:26 Dose: 10 ml Documented By: STEWART Shift Summary 08/23/22 04:44 Shift Summary by Iram Schafer Primary Diagnosis: Incisional Hernia Repair w/mesh Registration Status: Date of Surgery (if applicable): 08/20/22 Pertinent Medical Dx/Issue(s): GERD, Constipation, PTSD Med management (antibiotics, diuretics, BP): Rocephin Skin/Wound Care: Midline incision drainage circled(no change this shift), 3 rudy drains Abdominal binder in place Vital Signs with Trends: VSS O2, liter flow/saturations: RA Pain management (acute vs. chronic): Roxicodone, scheduled Ofirmev, Dilaudid Lab/Rad (abnormals, trends): Neuro/Mental Status: A&O x4 Cardiac Rhythm, Alarm Settings: N/A Urinary Elimination Device: BR Urinary output greater than 30mL/hr? Yes Date of last BM: 08/19/22 - Pt was able to pass gas this shift. Lines/Tubes: L AC NS 100 Activity: SBA, FWW, GB pt ambulated in the hallway Recommendations/questions for MD: Discharge Plan (needs, disposition, etc): TBD Initialized on 08/23/22 04:44 - END OF NOTE
--- NOTE | 2022-09-01 11:56 | Operative Note ---
DATE OF OPERATION: 08/20/2022 PREOPERATIVE DIAGNOSIS: Incarcerated incisional hernia. POSTOPERATIVE DIAGNOSIS: Incarcerated incisional hernia 11 x 7 cm. PROCEDURE: Incisional hernia repair with 10 x 15 skirted mesh graft. SURGEON: Ilya Cox M.D. FINDINGS: Large midline fascial defect with incarcerated omentum. Hernia defect measured 11 x 7 cm. A full-thickness, circumferential subcutaneous flap development had to be carried out in order to get adequate placement of the graft. DESCRIPTION OF PROCEDURE: Under general anesthesia, the patient's abdomen was prepped and draped in a sterile field. A midline incision was made. A partly-developed hernia sac was encountered. The fascial defect measured 11 x 7 cm. The fascial defect was enlarged slightly in order to push the omentum back into the peritoneal cavity. Once this was done, adhesions of the residual omentum to the undersurface of the muscle and fascia was carried out. A circumferential dissection of about 6 cm was necessary. An underlay mesh graft was placed. The graft was sutured [id number] circumferentially using interrupted 0 Prolene. The skirts of the mesh were then stapled to the undersurface of the fascia using [employer] staple gun. Irrigation was carried out. A 7 mm drain was placed over the mesh. The fascia was closed in the midline using multiple interrupted 0 Prolene sutures. The full thickness subcutaneous flaps were drained with a #10 Kannan drain on each side. These were secured to the fascia with 0 Chromic to prevent drifting towards the midline. These were brought out through separate stab incisions in the upper midline. Subcutaneous fascia was then closed with running locking 2-0 Monocryl. [place] were used to close the skin. Tegaderm dressing was placed. An abdominal binder was positioned. The patient tolerated the procedure well. She was awakened, transferred to a bed, and taken to the postanesthetic care unit in satisfactory condition. LCS:atiya Job ID: [id number] Doc ID: [id number] Ilya Cox M.D.
== END 2022-08-23 14:10 | disposition home or self-care (01) ==
LOC: MEDSUR 08:00 → SSSU 08:00 → EDSTATUS 10:45
PROVIDERS: ADMIT Family Medicine Adult Medicine; ATTEND Family Medicine Adult Medicine